=== PATIENT | male | born 1960 | race Caucasian/White ===

== ENCOUNTER → 2021-12-29 09:42 | Outpatient (BNVA) | payer BC, SELFPAY | PROVIDERS: PCP Physician Assistant Medical; Visit Provider Internal Medicine Pulmonary Disease | DX: Z13.89 Encounter for screening for other disorder (principal) ==

== ENCOUNTER → 2022-02-07 10:17 | Outpatient (BNVA) | payer BC, SELFPAY | PROVIDERS: PCP Physician Assistant Medical; Visit Provider Internal Medicine Pulmonary Disease | DX: J90 Pleural effusion, not elsewhere classified (principal) ==

== ENCOUNTER 2022-09-19 10:14 | Outpatient (REF) | payer BC, SELFPAY ==
--- NOTE | ~2022-09-19 | XR_ITS ---
EXAMINATION: XR CERVICAL SPINE CLINICAL INFORMATION: Headache COMPARISON: None TECHNIQUE: 4 views FINDINGS: There are no prevertebral soft tissue or bony abnormalities demonstrated. No compression fractures or subluxations are identified. Alignment is maintained at the atlanto-axial articulation. The disc spaces are preserved. Generalized mild endplate spurring. XR/XR cervical spine 3V IMPRESSION: No acute fracture or subluxation. Mild degenerative disc disease.
== END 2022-09-19 10:15 | disposition home or self-care (01) ==
LOC: HO.XRAY 10:14
PROVIDERS: PCP Physician Assistant Medical; Visit Provider Psychiatry & Neurology Neurology
DX: G44.209 Tension-type headache, unspecified, not intractable (principal)
CPT/HCPCS: 72040

== ENCOUNTER 2023-06-04 10:14 | Outpatient (REF) | payer MEDICARE, SELFPAY ==
[2023-06-04 11:48] LABS: Phenytoin Dilantin 15.8 ug/mL (10.0-20.0)
[2023-06-04 11:50] LABS: T4 Thyroxine 6.4 ug/dL (4.5-12.0)
[2023-06-06 03:19] LABS: T3 Uptake 27 % (22-35)
== END 2023-06-04 10:15 | disposition home or self-care (01) ==
LOC: HO.LAB 10:14
PROVIDERS: PCP Physician Assistant Medical; Visit Provider Psychiatry & Neurology Neurology
DX: R56.9 Unspecified convulsions (principal); E03.9 Hypothyroidism, unspecified
CPT/HCPCS: 36415; 80185; 84436; 84479

== ENCOUNTER 2024-09-30 15:49 | Outpatient (REF) | payer MEDICARE, SELFPAY ==
[2024-09-30 17:39] LABS: Erythrocyte Sedimentation Rate 5 MM/HR (0-15)
== END 2024-09-30 15:50 | disposition home or self-care (01) ==
LOC: HO.LAB 15:49
PROVIDERS: PCP Physician Assistant Medical; Visit Provider Psychiatry & Neurology Neurology
DX: G44.209 Tension-type headache, unspecified, not intractable (principal)
CPT/HCPCS: 36415; 85652

== ENCOUNTER 2024-10-28 14:26 | Outpatient (REF) | payer MEDICARE, SELFPAY ==
--- OUTSIDE RECORDS SUMMARY | 2024-10-28 15:27 | XMS_ITS | Clinical Summary ---
Author Organization [facility] Address [address] [place] [address] Care Team Providers Care Busher Helper Name Role Phone Anthony Marin PA-C Primary Care Provider [phone] Allergies Active Allergy Reactions Criticality Noted Date Comments Adhesives/Tape Unknown/Patient and Family Unable to Define Medium 10/02/2024 Tens Therapy Replace Back Pads Unknown/Patient and Family Unable to Define Medium 10/02/2024 Medications Medication Sig Dispensed Refills Start Date End Date Status phenytoin (DILANTIN) 100 MG ER capsule Take 200 mg by mouth 2 times a day. Active primidone (MYSOLINE) 250 MG tablet Take 1 tablet by mouth nightly. 02/18/2024 Active diltiazem (CARDIZEM LA) 240 MG 24 hr tablet Take 240 mg by mouth daily. 04/09/2024 Active tamsulosin (FLOMAX) 0.4 MG capsule Take 0.4 mg by mouth daily. 09/18/2024 Active clonazePAM (KlonoPIN) 0.5 MG tablet Take 0.5 mg by mouth 2 times a day. Active tadalafil (CIALIS) 5 mg tablet Take 5 mg by mouth. Active Encounters Date Type Department Care Team Description 10/02/2024 1:00 PM EST Office Visit [facility] [address], [address] [place] [address] Lionel Santiago MD Chronic nonintractable headache, unspecified headache type (Primary Dx); Deviated nasal septum; Nasal septal perforation; Chronic rhinitis; Chronic pansinusitis; Bilateral epiphora from Last 3 Months Social History Tobacco Use Types Packs/Day Years Used Date Smoking Tobacco: Never Smokeless Tobacco: Never Tobacco Cessation:Counseling Given: Not Answered Sex and Gender Information Value Date Recorded Sex Assigned at Not on file Gender Identity Not on file Sexual Orientation Not on file Plan of Treatment Health Maintenance Due Date Last Done Comments Hepatitis C Virus Screening 1960 DTaP/Tdap/Td Vaccines (1 - Tdap) 1977 Colonoscopy 2003 Pneumococcal Vaccines 50+ (1 of 1 - PCV) 2008 Zoster (Shingles) Vaccine (1 of 2) 2008 COVID-19 Vaccine ( - season) 2024 07/23/2022, 01/27/2022, 08/07/2021, Additional history exists RSV Vaccine 60 years and older and Patients (1 - 1-dose 75+ series) 2033 Influenza Vaccine Completed 05/29/2024, , 06/23/2020, Additional history exists Hepatitis B Vaccines Aged Out No long er eligible based on patient's age to complete this topic Care Teams Busher Helper Relationship Specialty Start Date End Date Anthony Marin PA-C PCP - General Internal Medicine 07/09/23
--- OUTSIDE RECORDS SUMMARY | 2024-10-28 15:27 | XMS_ITS | Encounter Summary ---
Author Organization [facility] Address [address] [place] [address] Care Team Providers Care Security System Sales Consultant Name Role Phone TomkarissakeshavAnthony PA-C Primary Care Provider [phone] Reason for Referral * Diagnostic Imaging (Routine) - Authorized Specialty Diagnoses / Procedures Referred By Contac t Referred To Contact Diagnoses Chronic pansinusitis Procedures CT Sinuses w/o contrast Lionel Santiago MD [address] [place] [address] MATY GIBBS Referral ID Status Reason Start Date Expiration Date V isits Requested Visits Authorized [id number] Authorized 10/02/2024 10/03/2025 1 1 Reason for Visit * Reason Comments Sinus Problem Encounter Details Date Type Department Care Team (Latest Contact Info) Description 10/02/2024 1:00 PM EST Office Visit [facility] [address], [address] [place] [phone] Lionel Santiago MD [address] [place], [place] [id number] Chronic nonintractable headache, unspecified headache type (Primary Dx); Deviated nasal septum; Nasal septal perforation; Chronic rhinitis; Chronic pansinusitis; Bilateral epiphora Social History Tobacco Use Types Packs/Day Years Used Date Smoking Tobacco: Never Smokeless Tobacco: Never Tobacco Cessation:Counseling Given: Not Answered Sex and Gender Information Value Date Recorded Sex Assigned at Not on file Gender Identity Not on file Sexual Orientation Not on file documented as of this encounter Progress Notes * Lionel Santiago MD - 10/02/2024 1:00 PM EST Images from the original note were not included. [facility] [address] [facility], [address] [address] Loc: [phone] Encounter Date: 10/02/2024 History of Present Illness: Anthony Cleaning is a 64 y.o. male who presents today for chronic sinusitis and chronic difficulty with headaches Patient's had long difficulty with headaches and migraines does work with a neurologist and has been on multiple medications for headaches which seem to be more posteriorly as well as more in the left. Comes and goes although chronicity seems to increasing. Did have an MRI about 4 years prior showed mucosal thickening. Had been treated in [place] at [facility] for prostate cancer and did have a PET scan showed mucosal thickening within the sinuses. Was noted by ENT elsewhere that patient had a perforated septum although no history of any nasal trauma surgeries and denies any difficulty with medication. No facial swelling no cervical adenopathy. No formal films of the sinuses have been obtained. Physical Exam ENT Physical Exam Ear Hearing: intact; Auricles: right auricle normal; left auricle normal; External Mastoids: right external mastoid normal; left external mastoid normal; Ear Canals: right ear canal normal; left ear canal normal; Tympanic Membranes: right tympanic membrane normal; left tympanic membrane normal; Nose External Nose: nares patent bilaterally; external nose normal; Internal Nose: nasal mucosa normal; bilateral inferior turbinates normal; Nose comments: Septal perforation posterior deviation Oral Cavity/Oropharynx Lips: normal; Teeth: normal; Gums: gingiva normal; Tongue: normal; Oral mucosa: normal; Hard palate: normal; Soft palate: normal; Tonsils: normal; Base of Tongue: normal; Posterior pharyngeal wall: no lesion noted; Nasopharynx/Hypopharynx/Larynx Nasopharynx Findings: normal; Hypopharynx: normal; Larynx Findings: normal; Neck Neck: neck normal; neck palpation normal; Thyroid: thyroid normal; Review of Systems HENT: Negative for congestion, dental problem, ear discharge, ear pain, facial swelling, hearing loss, nosebleeds, postnasal drip, rhinorrhea, sinus pressure, sinus pain, sneezing, sore throat, tinnitus, trouble swallowing and voice change. Respiratory: Negative for cough, choking and shortness of breath. Musculoskeletal: Negative for neck pain. Neurological: Positive for headaches. Negative for dizziness, light-headedness and numbness. Hematological: Negative for adenopathy. Psychiatric/Behavioral: Negative for sleep disturbance. Visit Orders. 1. Chronic nonintractable headache, unspecified headache type 2. Deviated nasal septum 3. Nasal septal perforation 4. Chronic rhinitis 5. Chronic pansinusitis 6. Bilateral epiphora Past Medical History History reviewed. No pertinent past medical history. History reviewed. No pertinent surgical history. History reviewed. No pertinent family history. Medication List No current outpatient medications on file. Allergies Not on File Procedure Endoscopic/fiberoptic nasal examination: Nasal endoscopy: With verbal consent a flexible nasal endoscopy was performed. Flexible endoscope was first passed into the right nasal cavity without difficulty. The septum appeared to be midline. The inferior aspect of the nasal cavity was clear and there were no signs of any masses, lesions, or polyps The inferior and middle turbinates were normal in appearance. The scope was then passed into the area of the middle meatus which was clear. The posterior nasal cavity was then evaluated. The superior turbinate was normal in appearance and the superior meatus was open without drainage. The sphenoethmoidal recess was normal. The right side of the nasopharynx was clear. The left nasal cavity was then evaluated. The flexible endoscope was passed into the left nasal cavity without difficulty. The septum appeared midline' The inferior aspect of the nasal cavity was clear and there were no signs of any masses, lesions, or polyps. The inferior and middle turbinates were normal in appearance. The scope was then passed into the area of the middle meatus which was clear. The posterior nasal cavity was then evaluated. The superior turbinate was normal in appearance andthe superior meatus was open without drainage. The sphenoethmoidal recess was normal The left side of the nasopharynx was clear. Assessment & Plan On physical examination there is a benign septal perforation. Because the patient's symptoms mucosal findings seen on PET scan as well as typical headaches formal CT scan of the sinuses will be obtained Lionel Santiago MD documented in this encounter Plan of Treatment Scheduled Orders Name Type Priority Associated Diagnoses Orde r Schedule CT Sinuses w/o contrast Imaging Routine Chronic pansinusitis Expected: 10/02/2024, Expires: 10/02/2025 documented as of this encounter Visit Diagnoses Diagnosis Chronic nonintractable headache, unspecified headache type- Primary Deviated nasal septum Nasal septal perforation Other diseases of nasal cavity and sinuses Chronic rhinitis Chronic pansinusitis Other chronic sinusitis Bilateral epiphora Epiphora, unspecified as to cause documented in this encounter Care Teams Security System Sales Consultant Relationship Specialty Start Date End Date Anthony Marin PA-C PCP - General Internal Medicine 07/09/23 documented as of this encounter
--- OUTSIDE RECORDS SUMMARY | 2024-10-28 15:27 | XMS_ITS | Clinical Summary ---
Author Organization [facility] Address [address] [place] [address] Care Team Providers Care Hair Or Beauty Salon Assistant Name Role Phone Felisakeshav Anthony Tellez PA-C Primary Care Provider Allergies Active Allergy Reactions Criticality Noted Date Comments Latex Rash Medium 04/24/2023 Medications Medication Sig Dispensed Refills Start Date End Date Status phenytoin (DILANTIN) 100 MG ER capsule Take 2 capsules (200 mg total) by mouth 2 (two) times a day. 0 02/07/2023 Active primidone (MYSOLINE) 250 MG tablet Take 1 tablet (250 mg total) by mouth every night at bedtime. 0 02/07/2023 Active dilTIAZem (CARDIZEM CD) 240 MG 24 hr capsule Take 1 capsule (240 mg total) by mouth daily. 0 03/07/2023 Active polyethylene glycol (Golytely) 236 g solution Take as directed 4000 mL 0 07/23/2023 Active Family History Medical History Relation Name Comments Colon cancer Brother Relation Name Status Comments Brother Social History Tobacco Use Types Packs/Day Years Used Date Smoking Tobacco: Never Smokeless Tobacco: Never Tobacco Cessation:Counseling Given: Not Answered Alcohol Use Standard Drinks/Week Comments Never 0 (1 standard drink = 0.6 oz pur e alcohol) Sex and Gender Information Value Date Recorded Sex Assigned at Not on file Gender Identity Not on file Sexual Orientation Not on file Job Start Date Occupation Industry Not on file Not on file Not on file Last Filed Vital Signs Vital Sign Reading Time Taken Comments Blood Pressure 120/86 04/24/2023 2:28 PM EDT Pulse 73 04/24/2023 2:28 PM EDT Temperature - - Respiratory Rate - - Oxygen Saturation - - Inhaled Oxygen Concentration - - Weight 108 kg (238 lb) 04/24/2023 2:28 PM EDT Height 175.3 cm (5' 9 ) 04/24/2023 2:28 PM EDT Body Mass Index 35.15 04/24/2023 2:28 PM EDT Plan of Treatment Health Maintenance Due Date Last Done Comments Hepatitis C Screening 1960 COVID-19 Vaccine (#1) 1958 Depression Screening 1970 BMI Counseling 1976 Preventative Health Evaluation 1976 Colon Cancer Screening (Colonoscopy) 2003 Shingrix-Zoster Vaccine (1 of 2) 2008 Fall Risk Assessment 2023 Pneumococcal Vaccine (1 of 1 - PCV) 2023 Influenza Vaccine (#1) 2024 3, 07/23/2022, 07/23/2022, Additional history exists DTap / Tdap / Td (3 - Td or Tdap) 11/04/2029 11/04/2019, 07/20/2010, 06/05/2000 RSV Adult > 60+ Yrs or (1 - 1-dose 75+ series) 2033 Hepatitis B Vaccines Aged Out No long er eligible based on patient's age to complete this topic RSV Ped < 20 months Aged Out No longe r eligible based on patient's age to complete this topic Care Teams Hair Or Beauty Salon Assistant Relationship Specialty Start Date End Date Anthony Marin PA-C PCP - General Medical Services 04/24/23
--- OUTSIDE RECORDS SUMMARY | 2024-10-28 15:27 | XMS_ITS | Patient Health Record ---
Author Organization [facility] Address [address] [place] [address] Care Team Providers Care Study Manager Name Role Phone EDER CURRY PA-C Primary Care Provider Un available Carlitos Smith Unavailable [phone] REASON FOR REFERRAL No Information SOCIAL HISTORY Sex Assigned At : Social History Observation Description Sex Assigned At Unknown PLAN OF TREATMENT No Information Insurance Providers Payer Name Payer Address Payer Phone Subscriber Number Group Number Insured Name Patient Relationship to Insured Coverage Start Date Coverage End Date [facility] [address] [place], [place] [id number] EDER KEITA Self - patient is the insured
--- OUTSIDE RECORDS SUMMARY | 2024-10-28 15:27 | XMS_ITS | Clinical Summary ---
Author Organization [facility] Address [address] [place] [address] Care Team Providers Care Supervisor Belt And Link Assembly Name Role Phone Anthony Marin Primary Care Provider [phone] Allergies Active Allergy Reactions Criticality Noted Date Comments Adhesive Tape-Silicones Rash 05/17/2023 Medications dilTIAZem CD (CARDIZEM CD) 240 mg 24 hr capsule Take 240 mg by mouth once a day. 03/07/2023 Active codeine-guaiFENe sin (CHERATUSSIN AC) 20-200 mg/10 mL liquid TAKE 5 ML BY MOUTH 3 TIMES DAILY NEEDED FOR COUGH FOR UP TO 10 DAYS. 12/01/2022 Active Social History Tobacco Use Types Packs/Day Years Used Date Smoking Tobacco: Never Assessed Sex and Gender Information Value Date Recorded Sex Assigned at Male 05/16/2023 2:00 PM EDT Legal Sex Male 1:19 PM EDT Gender Identity Male 05/16/2023 2:00 PM EDT Sexual Orientation Straight 05/16/2023 2: 00 PM EDT Last Filed Vital Signs Vital Sign Reading Time Taken Comments Blood Pressure 139/81 05/17/2023 9:36 AM EDT Pulse 74 05/17/2023 9:36 AM EDT Temperature - - Respiratory Rate - - Oxygen Saturation - - Inhaled Oxygen Concentration - - Weight - - Height - - Body Mass Index - - Plan of Treatment Health Maintenance Due Date Last Done Comments Cologuard 1960 Colon Cancer Screening 1960 Colonoscopy 1960 FOBT / Fit Test 1960 Hepatitis C Screening 1960 Sigmoidoscopy 1960 Pneumococcal Vaccine: 50+ Years (1 of 1 - PCV) 2008 Zoster Vaccines (1 of 2) 2008 RSV Vaccine (60+ years old and patients) (1 - Risk 60-74 years 1-dose series) 2018 COVID-19 Vaccine ( season) 2024 07/23/2022, 01/27/2022, 08/07/2021, Additional history exists Influenza Vaccine (#1) 2024 , 06/21/2021, 06/23/2020, Additional history exists Alcohol/Substance Use Screening 09/10/2024 Depression Screening and Follow-Up 09/10/2024 Health Care Proxy Review 09/10/2024 Social Drivers of Health Annual Screening 09/10/2024 DTaP,Tdap,and Td Vaccines (3 - Td or Tdap) 11/04/2029 11/04/2019, 07/20/2010, 06/05/2000 Hepatitis B Vaccines Aged Out No long er eligible based on patient's age to complete this topic Insurance [facility] Care Teams Supervisor Belt And Link Assembly Relationship Specialty Start Date End Date Anthony Marin PCP - General Internal Medicine 02/16/23
--- OUTSIDE RECORDS SUMMARY | 2024-10-28 15:27 | XMS_ITS | Clinical Summary ---
Author Organization [facility] ity Address [address] [place] [address] Care Team Providers Care Photogrammetry Airplane Pilot Name Role Phone Anthony Marin Primary Care Provider [phone] Allergies Active Allergy Reactions Criticality Noted Date Comments Adhesive Tape-Silicones Itching High 05/17/2023 Other reaction(s): Rash EKG leads Latex 12/01/2021 Sertraline Palpitations 10/19/2022 Medications albuterol HFA (ProAir HFA) 90 mcg/actuation inhaler Inhale 2 puffs by mouth every 4 (four) hours if needed for wheezing or shortness of breath. 8.5 g 5 4 07/28/20 25 Active clonazePAM (KlonoPIN) 0.5 mg tablet Take 2 Tablets by mouth at bedtime as needed. 3 Active dilTIAZem CD (CARDIZEM CD) 240 mg 24 hr capsule TAKE 1 CAPSULE BY MOUTH TWICE A DAY 4 Active dilTIAZem LA (CARDIZEM LA) 240 mg 24 hr tablet Take 240 mg by mouth daily. 4 Active phenytoin (DILANTIN) 100 mg ER capsule TAKE 2 CAPSULES BY MOUTH TWICE A DAY 4 Active primidone (MYSOLINE) 250 mg tablet TAKE 1 TABLET BY MOUTH EVERYDAY AT BEDTIME 4 Active sildenafiL (VIAGRA) 100 mg tablet Take 0.5 Tablets by mouth as needed for Erectile Dysfunction. 3 Active Active Problems Problem Noted Date Diagnosed Date Prostate cancer 01/04/2024 Atrial tachycardia 10/19/2022 Palpitation 10/19/2022 Anxiety and depression 08/21/2022 Dilatation of thoracic aorta 12/23/2021 Primary insomnia 06/04/2018 Hyperlipidemia 02/02/2016 Atrial fibrillation 11/19/2005 Overview (08/27/2024): followeed by dr ligia Hubbard Assessment & Plan: Patient presents today for EKG visit and due to patient's ongoing symptoms and concerns I saw him for an office visit as well. His EKG is showing atrial flutter with variable AV block with a heart rate of 112 bpm. Patient states that his heart rate was even more elevated through the weekend. He is reporting some tremors from the flecainide which he states has been present since the initiation of the medication. Ultimately he would like to come off these medications and understands that this is just a temporary measure until he sees Dr. Jorge and possibly discuss a procedure in the future. Given that his heart rate is still elevated I would recommend that he is increase his diltiazem to 240 mg once a day and continue with flecainide 150 mg twice daily. We will also reach out to our EP service to let them know what happened today and to provide further direction if necessary. 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 Overview (08/27/2024): Last seizure in late Severe obesity (BMI 35.0-39.9) with comorbidity 11/19/2005 Immunizations Name Administration Dates Next Due H1N1 Inj Preservative Free 06/18/2016 Influenza Quadravalent, MDCK , 0.5ml, preservative free (Flucelvax) 6mo and older 06/23/2020,06/04/2018 Influenza Quadravalent, MDCK , 0.5ml, with preservative (Flucelvax) 6mo and older 07/23/2023,07/23/2022 Influenza trivalent, 0.5mL ( Fluad) 65yo and older 05/29/2024 Influenza trivalent, 0.5mL, preservative free (Fluarix; FluLaval; Fluzone) ages 6mo and older (Afluria) 3 years and older 06/10/2019,06/17/2017,06/18/2016,2014,06/12/2014,06/11/2013 Influenza trivalent, with preservative (Fluzone; Afluria) 6mo and older 06/21/2021 Influenza, Unspecified 07/10/2019,06/17/2017,01/2015 Moderna SARS-CoV-2 COVID-19, mRNA, LNP-S, preservative free 01/27/2022,08/07/2021,12/21/2020,2020 Pfizer (ages 12 & older) Biv alent, COVID-19 07/23/2022 TD, Adsorbed, Preservative Free 06/05/2000 Td Tetanus diptheria (Tdvax) 7yo and older 11/04/2019 Tdap Tetanus diptheria acell ular pertussis (Boostrix; Adacel) 7yo and older 07/20/2010 Surgical History Surgery Date Site/Laterality Comments TONSILLECTOMY PROCEDURE: HISTORICAL TONSILLECTOMY OTHER SURGICAL HISTORY PROCEDURE: HISTORY OTHER; COMMENT: MINOR SURG ON THE LEFT WRIST ESOPHAGOGASTRODUODENOSCOPY 2005 PROCEDURE: NH EGD TRANSORAL BIOPSY SINGLE/MULTIPLE; COMMENT: duodenal bx normal COLONOSCOPY W/ BIOPSIES 2005 PROCEDURE: NH COLONOSCOPY W/BIOPSY SINGLE/MULTIPLE; COMMENT: colonic bx normal COLONOSCOPY 2012 PROCEDURE: NH COLONOSCOPY FLX DX W/COLLJ SPEC WHEN PFRMD; COMMENT: normal OTHER SURGICAL HISTORY 11/2021 PROCEDURE: TREAT ATRIAL FIBRILLATION/FLUTTER; COMMENT: maze procedure, left atrial appendage closure Medical History Medical History Date Comments Generalized convulsive epile psy without mention of intractable epilepsy 11/19/2005 DX:Generalized convuls bora epilepsy without mention of intractable epilepsy Atrial fibrillation (CMS/HCC) 11/19/2005 DX :Atrial fibrillation (HCC) Obesity, unspecified 11/19/2005 DX:Obesity, unspecified Hyperlipidemia 02/02/2016 DX:Hyperlipidemi a Family History Medical History Relation Name Comments Colon cancer Brother 1 Relation Name Status Comments Brother 1 Alive Brother 2 Alive colon cancer at age 47 stage 4 lung cancer Brother 3 Alive Brother 4 Alive Brother 5 Alive Brother 6 Alive Father (Age 82) PROSTATE C ANCER Mother Alive Social History Tobacco Use Types Packs/Day Years Used Date Smoking Tobacco: Never Smokeless Tobacco: Never Alcohol Use Standard Drinks/Week Comments No 0 (1 standard drink = 0.6 oz pur e alcohol) Sex and Gender Information Value Date Recorded Sex Assigned at Not on file Legal Sex Male 11:11 AM EST Gender Identity Not on file Sexual Orientation Not on file Obstetrics History Last Filed Vital Signs Vital Sign Reading Time Taken Comments Blood Pressure 120/68 05/29/2024 10:42 AM EDT Pulse 60 05/29/2024 10:42 AM EDT Temperature - - Respiratory Rate - - Oxygen Saturation - - Inhaled Oxygen Concentration - - Weight 105 kg (232 lb) 05/29/2024 10:42 AM EDT Height 175.3 cm (5' 9 ) 05/29/2024 10:42 AM EDT Body Mass Index 34.26 05/29/2024 10:42 AM EDT Plan of Treatment Upcoming Encounters Date Type Department Care Team (Late st Contact Info) Description 04/09/2025 1:30 PM EDT Ancillary Procedure [facility] - [address] [place] [address] Health Maintenance Due Date Last Done Comments Pneumococcal Vaccine: 50+ Years (1 of 2 - PCV) 1977 Zoster Vaccines (1 of 2) 1977 RSV Immunization Patients 60+ Years Old (1 - Risk 60-74 years 1-dose series) 2018 Social Influencers of Health Screening 08/19/2022 Falls Risk Assessment 2023 COVID-19 Vaccine ( season) 2024 07/23/2022, 01/27/2022, 08/07/2021, Additional history exists Depression Screening 01/03/2025 01/04/2024 Medicare Annual Wellness Visit 01/03/2025 01/04/2024 Cholesterol Screening (Lipid Panel) 05/14/2029 05/14/2024 DTaP,Tdap,and Td Vaccines (3 - Td or Tdap) 11/04/2029 11/04/2019, 07/20/2010, 06/05/2000 Colorectal Cancer Screening: Colonoscopy 06/28/2033 06/28/2023 Hepatitis C Screening Completed 11/04/2018 Influenza Vaccine Completed 05/29/2024, , 07/23/2022, Additional history exists HIB Vaccines Aged Out No longer eligi ble based on patient's age to complete this topic HPV Vaccines Aged Out No longer eligi ble based on patient's age to complete this topic Hepatitis A Vaccines Aged Out No long er eligible based on patient's age to complete this topic Hepatitis B Vaccines Aged Out No long er eligible based on patient's age to complete this topic IPV Vaccines Aged Out No longer eligi ble based on patient's age to complete this topic MMR Vaccines Aged Out No longer eligi ble based on patient's age to complete this topic Meningococcal ACWY Vaccine Aged Out N o longer eligible based on patient's age to complete this topic Meningococcal B Vacine Aged Out No lo nger eligible based on patient's age to complete this topic RSV Immunization Patients Under 20 months Aged Out No longer eligible based on patient's age to complete this topic Varicella Vaccines Aged Out No longer eligible based on patient's age to complete this topic Procedures Procedure Name Priority Date/Time Associated Diagnosis Comments EXTERNAL CLINICAL LAB 08/11/2024 LIPID PANEL Routine 05/14/2024 DEPRESSION SCREENING Routine 01/04/2024 COLONOSCOPY Routine 06/28/2023 HEPATITIS C SCREENING Routine 11/04/2018 from Last 3 Months or Most Recently Relevant to Health Maintenance Results * External clinical lab (08/11/2024) [facility] LAB BLOOD ORDERABLES Fin al Result * Lipid panel (05/14/2024) LDL/HDL Ratio 0 Comment:No Interpretation, A bstracted Triglycerides 0 mg/dL Comment:No Interpretation, A bstracted Cholesterol 0 mg/dL Comment:No Interpretation, A bstracted HDL 0 mg/dL Comment:No Interpretation, A bstracted LDL Cholesterol 0 mg/dL Comment:No Interpretation, A bstracted Blood Venous blood specimen / Unknown [facility] Provider LAB BLOOD ORDERABLES Vivian l Result * Depression Screening (01/04/2024) Depression Screening Abstracted Historical Provider HEALTH MAINTENANCE Final Result * Colonoscopy (06/28/2023) Colonoscopy No Interpretation , Abstracted Anatomical Region Laterality Modality Other Historical Provider HEALTH MAINTENANCE Final Result * Hepatitis C Screening (11/04/2018) Hepatitis C Screening Abstracted Historical Provider HEALTH MAINTENANCE Final Result from Last 3 Months or Most Recently Relevant to Health Maintenance Insurance MEDICARE [facility] Care Teams Photogrammetry Airplane Pilot Relationship Specialty Start Date End Date Anthony Marin PA PCP - General Internal Medicine 09/07/21
--- OUTSIDE RECORDS SUMMARY | 2024-10-28 15:27 | XMS_ITS ---
Author Name [facility] Organization Unknown History of Medication Use Medication Directions Dispensed Refills Start Date End Date Stat us primidone (MYSOLINE) 250 MG tablet Take 1 tablet by mouth nightly. 02/18/2024 active phenytoin (DILANTIN) 100 MG ER capsule Take 200 mg by mouth 2 times a day. active tadalafil (CIALIS) 5 mg tablet Take 5 mg by mouth. activ e clonazePAM (KlonoPIN) 0.5 MG tablet Take 0.5 mg by mouth 2 times a day. active diltiazem (CARDIZEM LA) 240 MG 24 hr tablet Take 240 mg by mouth daily. 04/09/2024 active tamsulosin (FLOMAX) 0.4 MG capsule Take 0.4 mg by mouth daily. 09/18/2024 active Problems Problem Status Onset Date Problem Type Date of Resolution Source Chronic pansinusitis active EncounterDiagnosisA ct [facility] Bilateral epiphora active EncounterDiagnosisAct [facility] Deviated nasal septum active EncounterDiagnosis Act [facility] Nasal septal perforation active EncounterDiagnosisAct [facility] Chronic nonintractable headache, unspecified headache type active EncounterDiagnosisAct [facility] Chronic rhinitis active EncounterDiagnosisAct [facility]
--- OUTSIDE RECORDS SUMMARY | 2024-10-28 15:27 | XMS_ITS | Referral Summary ---
Author Organization [facility] Address [address] [place] [address] Care Team Providers Care Ecmo Specialist Name Role Phone Anthony Marin Primary Care Provider [phone] Allergies Active Allergy Reactions Criticality Noted Date [...] Mass Index - - Plan of Treatment Not on file Insurance MEDICARE [facility] SUPP Care Teams Ecmo Specialist Relationship Specialty Start Date End Date Anthony Marin PCP - General Internal Medicine 02/16/23
--- OUTSIDE RECORDS SUMMARY | 2024-10-28 15:27 | XMS_ITS ---
Author Organization [facility] Address [address] [place] [phone] Care Team Providers Care Manager Assurance Name Role Phone EDER CURRY PA-C Primary Care Provider Un available Carlitos Smith Unavailable [phone] REASON FOR VISIT Patient presents today for a SCREENING COLON Encounters Encounter Location Date Provider Diagnosis [facility] [address] [place] [phone] 07/04/2023 Carlitos Smith PLAN OF TREATMENT No Information
--- OUTSIDE RECORDS SUMMARY | 2024-10-28 15:27 | XMS_ITS ---
Author Organization [facility] Address [address] [place] [phone] Care Team Providers Care Carpenter Foreman Name Role Phone EDER CURRY PA-C Primary Care Provider Un available Carlitos Smith Unavailable [phone] REASON FOR VISIT new pt appt Encounters Encounter Location Date Provider Diagnosis [facility] [address] [place] [phone] 07/02/2023 Carlitos Smith PLAN OF TREATMENT No Information
[2024-10-28 16:02] LABS: Alanine Aminotransferase 29 U/L (0-40); Albumin Level 4.1 g/dL (3.5-5.0); Alkaline Phosphatase 63 U/L (39-117); Anion Gap 10 (12-20); Aspartate Amino Transferase 29 U/L (5-37); Bilirubin Total 0.4 mg/dL (0.0-1.0); Blood Urea Nitrogen 15 mg/dL (9-16); Carbon Dioxide 27 mmol/L (22-29); Chloride 109 mmol/L (96-108); Estimated Glomerular Filt Rate > 60; Glucose Random 86 mg/dL (60-115); Potassium 4.4 mmol/L (3.3-5.1); Sodium 142 mmol/L (135-145); Total Protein 7.3 g/dL (6.5-8.0)
== END 2024-10-28 14:27 | disposition home or self-care (01) ==
LOC: HO.LAB 14:26
PROVIDERS: PCP Physician Assistant Medical; Visit Provider Registered Nurse
DX: G25.3 Myoclonus (principal)
CPT/HCPCS: 36415; 80053; 80185

== ENCOUNTER 2025-07-13 11:32 | Outpatient (REF) | payer MEDICARE, SELFPAY ==
--- OUTSIDE RECORDS SUMMARY | 2024-02-20 09:15 | XMS_ITS ---
Author Organization [employer] [facility] Address [address] [facility] [address] [place] [address] Care Team Providers Care Business Support Liaison Name Role Phone Hilton Tovar Unavailable [phone] Luis Beach Unavailable Unavailable Vital Signs Blood pressure systolic 120 mm Hg 02/20/20 24 Blood pressure diastolic 78 mm Hg 024 Heart Rate 68 /min 02/20/2024 Height 69 in 02/20/2024 Weight 228 lbs 02/20/2024 BMI 33.67 kg/m2 02/20/2024 BMI Percentile 33.67 % 02/20/2024 Height-cm 175.26 cm 02/20/2024 Weight-kg 103.42 kg 02/20/2024 Encounters Encounter Location Date Provider Diagnosis [facility] [address] [facility] [address] [place] [address] 02/20/2024 Hilton Tovar Plan Of Treatment No [...] and discussion. 63 year old male from [place], [place] with hx of Seizures, Afib and flutter s/p WMM 11/2021 and afib/flutter ablation in [place] (03/2023) and s/p redo PVI ablation 06/15/2023. [...] * Anthony CLEANINGDOB: 1960 (65 yo M)Acc No.[id number]:02/20/2024 Patient: Jay chapiskaileemacario Anthony Casanova Provider: Austin Tovar MD :1960 A ge:63 Y S ex:Male Date:02/20/2024 Address:[address] [place], [place] [id number] Subjective: * Chief Complaints: * HPI: M [...] and discussion. 63 year old male from [place], [place] with hx of Seizures, Afib and flutter s/p WMM 11/2021 and afib/flutter ablation in [place] (03/2023) and s/p redo PVI ablation 06/15/2023. [...] * Electronic signature of Hilton Tovar on 07/13/2025 at 01:42 PM ADVERTISING SPACE CLERK Sign off status: Pending * Provider: Austin Tovar MD Date: 0 02/20/2024 Generated for Adalid mackey/Chicho/Tomasz on: 09/12/2024 01:42 PM ADVERTISING SPACE CLERK
--- OUTSIDE RECORDS SUMMARY | 2025-01-31 04:00 | XMS_ITS ---
Author Organization [facility] Address [address] [facility] [address] [place] [address] Care Team Providers Care Channel Lip Stiffener Insoles Name Role Phone Hilton Tovar Unavailable [phone] Luis Beach Unavailable Unavailable Migration, Provider Unavailable [...] as needed for pain 07/03/2023 *Reorder from [facility] an for eRx and Interaction Alerts* clonazePAM 0.5 MG Tablet Take 1 tablet by mouth once a day Oral Progress Notes * Anthony CLEANINGB: 1960 (65 yo M)Acc No.[id number]:01/31/2025 Patient: Anthony SEQUEIRA :1960 A ge:64 Y S ex:Male Address:[address] [place] [address], [facility] * Refills Stop Amiodarone HCl Tablet, 200 [...]
--- OUTSIDE RECORDS SUMMARY | 2025-02-01 04:00 | XMS_ITS ---
Author Organization [facility] Address [address] [facility] [address] [place] [address] Care Team Providers Care Jet Worker Name Role Phone Hilton Tovar Unavailable [phone] Luis Beach Unavailable Unavailable Migration, Provider Unavailable Unavailable Allergies No Known Allergies REASON FOR VISIT [facility] Medications Medication SIG (Take, Route, Frequency, Duration) Notes Start Date End Date Status Primidone 250 MG Tablet 1tab QHS Oral Active clonazePAM 0.5 MG Tablet Take 2 tablet b y mouth once a day Oral Active Dilantin 100 MG Capsule Take 2 tabs PO BID Oral Active Cardizem LA 240 MG Tablet Extended Release 24 Hour Take 1 tablet by mouth once a day Oral Active Social History Social History Additional Details Category Social Info Options Details Migrated Social History Migrated Social History seatbelt usage : 100 , drug use : no , smoking status : Never smoker , passive cigarette smoke exposure : no , caffeine use, average drinks per day : 0 , chewing tobacco use : Never , if the patient is using/has used a vaping item, Current, Former, Never Used, Not asked : Never , Exercise counseling : Yes , personal history of marijuana use : no , alcohol use : no , social history : Intio Encounters Encounter Location Date Provider Diagnosis Migrated_Facility 0 0 02/01/2025 Provider Migration Plan Of Treatment No Information Progress Notes * Anthony CLEANINGDOB: 1960 (65 yo M)Acc No.[id number]:02/01/2025 Patient: Anthony SEQUEIRA :1960 A ge:64 Y S ex:Male Address:[address] [place] [address], [address] Subjective: * Chief Complaints: * E MR-[facility] * Medical History: Current Problems: Prostate cancer (ICD-185) (VAJ48-G07) Body mass index (BMI) 33.0-33.9, adult (ICD-V85.33) (QHB66-R21.33) Long-term (current) use of anticoagulants (ICD-V58.61) (QRB10-D53.01) Fall risk (ICD-V15.88) (EMH48-P22.81) S/P PVI ABLATION, 06/15/2023 (ICD-V58.89) (NDA09-Y63.89) PVI, CTI ablation (03/19/23) (ICD-V15.1) (FPT36-M30.890) Cardioversion by Dr. De Guzman (ICD-V15.1) (AFO57-S18.11xA) Body mass index (BMI) 35.0-35.9, adult (ICD-V85.35) (NJW49-T54.35) Overweight (ICD-278.02) (LFZ66-T88.3) Typical atrial flutter (ICD-427.32) (KWF47-U79.3) Atrial fibrillation (ICD-427.31) (ELN46-Z37.91) KIRK MAZE ( Dr. Beach) 11/11/2021 (ICD-V45.89) (IRW14-J41.890) High risk meds superintendent terminal use (ICD-V58.6) (CMK74-A16.899) PAC (ICD-427.61) (BYX27-W54.1) Seizure disorder HX (ICD-780.39) (PSI96-F94.9) Pvc's (ICD-427.69) (BIX29-X30.3) Palpitations (ICD-785.1) (RLU31-E25.2) Abnormal electrocardiogram (ICD-794.31) (YVH58-C23.31) * Surgical History: s/p Mini Maze 11/2022 PAST SurgHX Till 02/20/2024 S/p PVI ablation 06/15/2023 PAST SurgHX Till 02/20/2024 * Family History: M igrated Family History: : myocardial infarction in female under 65, family hx : no ,: myocardial infarction in male under 55, family hx (NCEP risk factors) : no . M other: No known relatives. * Social History: M igrated Social History: M igrated Social History: seatbelt usage : 100 , drug use : no , smoking status : Never smoker , passive cigarette smoke exposure : no , caffeine use, average drinks per day : 0 , chewing tobacco use : Never , if the patient is using/has used a vaping item, Current, Former, Never Used, Not asked : Never , Exercise counseling : Yes , personal history of marijuana use : no , alcohol use : no , social history : Intio. * Medications: T akingPrimidone 250 MG Tablet 1tab QHS Oral clonazePAM 0.5 MG Tablet Take 2 tablet by mouth once a day Oral Dilantin 100 MG Capsule Take 2 tabs PO BID Oral Cardizem LA 240 MG Tablet Extended Release 24 Hour Take 1 tablet by mouth once a day Oral Taking Primidone 250 MG Tablet 1tab QHS Oral Taking clonazePAM 0.5 MG Tablet Take 2 tablet by mouth once a day Oral Taking Dilantin 100 MG Capsule Take 2 tabs PO BID Oral Taking Cardizem LA 240 MG Tablet Extended Release 24 Hour Take 1 tablet by mouth once a day Oral * Allergies: N .K.D.A. * * Date:
--- OUTSIDE RECORDS SUMMARY | 2025-05-07 05:30 | XMS_ITS ---
Author Organization [facility] [place] Address [address] [place] [address] Care Team Providers Care Portable Power Tool Repairer Name Role Phone Anthony Machado Primary Care Provider Unav ailable Black, Roxy Unavailable [phone] Allergies Allergen (clinical drug ingredient) Drug/Non Drug Allergy documented on EMR Reaction Allergy Type Onset Date Status Adhesive Taps (uncoded) Unknown Allergy Active Medications Medication SIG (Take, Route, Fr equency, Duration) Notes Start Date End Date Status dilTIAZem HCl Active Tamsulosin HCl Activ e Primidone Active Tadalafil Active clonazePAM Active Phenytoin Active Social History Tobacco Use: Social History Observation Description Date Details (start date - stop date) Never Smoker NA - NA Tobacco use other than smoking: Question Answer Notes Are you an other tobacco user? No Tobacco Control (Standard) Question Answer Notes Tobacco use: Nonsmoker AUDIT-C (Standard) Question Answer Notes Did you have a drink contain ing alcohol in the past year? Yes How often did you have a dri nk containing alcohol in the past year? Never (0 point) How many drinks did you have on a typical day when you were drinking in the past year? 1 or 2 drinks (0 point) How often did you have six o r more drinks on one occasion in the past year? Never (0 point) Points 0 Interpretation Negative Vital Signs Height 5 ft 9 in in 05/07/2025 Weight 240 lbs 05/07/2025 BMI 35.44 kg/m2 05/07/2025 Encounters Encounter Location Date Provider Diagnosis [facility] [address] [place] [address] 05/07/2025 Roxy Clifford Plan Of Treatment No Information Progress Notes * Anthony CLEANING JDOB:[birth year] (65 yo M)Acc No.[id number]:05/07/2025 Progress Notes Patient: Anthony SEQUEIRA Provider: Satinder Horton DPM :1960 A ge:65 Y S ex:Male Date:05/07/2025 Address:[address] [place] [address] kenyon [id number] Pcp:ELDA Esquivel Subjective: * Chief Complaints: * * ROS: G eneral/Constitutional: Nausea d enies. V omiting d enies. H hamilton Thirst d enies. L oss appetite d enies. C hills d enies. F atigue a dmits.?Fever d enies. N ight Sweats d enies. U nexplained weight loss d enies. U nexplained weight gain d enies. H EENTM: Dentures d enies. D izziness d enies. G lasses/contacts a dmits. R etinopathy d enies. B lurred/double vision d enies. T MJ?denies. D ischarge/drainage d enies. I mplants d enies. S ore throat d enies. D ental implants d enies. H belkys of hearing d enies. D ifficulty chewing/swallowing/speaking d enies. N ose bleeds d enies. S ore mouth d enies. ? R espiratory: On Oxygen d enies. P neumonia/pleurisy d enies.?Bronchitis d enies. E mphysema d enies. C oughing d enies. C ough blood?denies. S hortness of breath d enies. W heezing d enies. C ardiovascular: Pacemaker d enies. M TYING IN MACHINE OPERATOR d enies. W PW d enies. C HF d enies. H eart attack d enies. S eptal defect d enies. R apid beat d enies. C hest pain d enies. A trial Fib. a dmits. M urmur/Palpitations a dmits. G astrointestinal: Hemorrhoids a dmits. S tomach/Abdominal pain d enies. D ark blood stool d enies. I rritable bowel d enies. C onstipation d enies. D iarrhea d enies. H ematology: Swelling d enies. C lots d enies. V aricose Veins d enies. B ruising d enies. B leeding problem d enies. G enitourinary: Blood urine d enies. F requent/Painfu/urination/bladder control d enies. K idney stones d enies. I nfection (UTI) d enies. N ephropathy d enies. s ex trans dis (STD) d enies. P rostate a dmits. M usculoskeletal: Hammertoes d enies. B unions d enies. B ack Pain a dmits. M uscle Cramps/ Resting a dmits. M uscle cramps / walking d enies.?Generalized aches and pains a dmits. W eakness d enies. I nteg.: Lamas d enies. S cars d enies. C orns/calluses?denies. I ngrown nails d enies. P ainful nails d enies. O pen Sores d enies. R ashes d enies. N eurologic: Difficulty sleeping d enies. B rain disorder d enies. N umbness a dmits. B alance trouble d enies. C onfusion d enies. F ainting/blackouts d enies. T ingling d enies. T remors a dmits. * Medical History: A rthritis (OA, RA), Back, Hip, Knee Pain, Broken Bone(s), Carcer, Epilepsy/Seizures, Headaches/Migraines, Measles, Mumps, A fib, Chicken Pox. * Surgical History: b one graft 1976, cardiac ablation 11/2021, catheter ablation 03/2023, 06/2023. * Family History: M other: , diagnosed with Family history of arthritis. F ather: , diagnosed with Other malignant neoplasm of unspecified site. * Social History: T obacco Use: T obacco use other than smoking A re you an other tobacco user? N o Tobacco Control (Standard) T obacco use: N onsmoker D rugs/Alcohol: D rugs H ave you used drugs other than those for medical reasons in the past 12 months? N o M iscellaneous: C affeine: yes, frequency:. Children: yes, 1. Exercise: yes, treadmill, elliptical weights, walking, hiking. Marital status: . Occupation: [employer]. D rug/Alcohol: A MARIANA-C (Standard) D id you have a drink containing alcohol in the past year? Y es H ow often did you have a drink containing alcohol in the past year? N ever (0 point) H ow many drinks did you have on a typical day when you were drinking in the past year? 1 or 2 drinks (0 point) H ow often did you have six or more drinks on one occasion in the past year? N ever (0 point) P oints 0 I nterpretation N egative * Medications: T aking Phenytoin , Taking Primidone , Taking clonazePAM , Taking Tadalafil , Taking Tamsulosin HCl , Taking dilTIAZem HCl * Allergies: A dhesive Taps. Objective: * Vitals: H t: 5 ft 9 in, Wt:240, BMI:35.44, Shoe size: 10, Ht-cm: 175.26 cm, Wt-k.86 kg. Assessment: Plan: * Treatment: * Images: * The named appointment provid er may or may not be the originator of this progress note, and it is not deemed complete until electronically signed by the appointment provider. Sign off status: Pending * Provider: Satinder Horton DPM Date: 0 05/07/2025 Generated for Adalid mackey/Chicho/Tomasz on: 09/12/2024 02:44 PM EST
[2025-07-13 13:03] LABS: Anion Gap 10 (12-20); Blood Urea Nitrogen 18 mg/dL (9-16); Calcium 8.6 mg/dL (8.4-10.2); Carbon Dioxide 28 mmol/L (22-29); Chloride 108 mmol/L (96-108); Estimated Glomerular Filt Rate > 60; Magnesium 2.0 mg/dL (1.6-2.6); Potassium 4.6 mmol/L (3.3-5.1); Sodium 141 mmol/L (135-145)
--- OUTSIDE RECORDS SUMMARY | 2025-07-13 14:42 | XMS_ITS | Encounter Summary ---
Author Organization [facility] Address [address] [address] [place] [address] Phone Care Team Providers Care Try Out Person Name Role Phone Felisakeshav Alton SCHROEDER Primary Care Provid er Alexsander Mckeon MD, MPH Unavailable [phone] Vickie Anne DO Unavailable [phone] Asa Morales MD Unavailable [phone] Alona Barlow RN Unavailable [email or web address] Mick Baer INSPECTOR CONVEYOR LINE Unavailable [phone] Encounter Details Date Type Department Care Team (Late st Contact Info) Description 09/06/2023 Procedure Pass [facility] [address] [place] [address] Social History Tobacco Use Types Packs/Day Years Used Date Smoking Tobacco: Never Smokeless Tobacco: Never Alcohol Use Standard Drinks/Week Comments Yes 0 (1 standard drink = 0.6 oz pur e alcohol) socially - a few beers/year Education Answer Date Recorded Are you interested in more education? Not on mary jane e 07/09/2023 Are you concerned about learning? Not on file 07/09/2023 No 07/09/2023 No 07/09/2023 Digital Access Answer Date Recorded No 07/09/2023 No 07/09/2023 Reliable internet access at home? Not on file 07/09/2023 Device with a working camera? Not on file Sex and Gender Information Value Date Recorded Sex Assigned at Male 07/09/2023 3:00 PM EDT Legal Sex Male 2:59 PM EDT Gender Identity Male 07/09/2023 3:00 PM EDT Sexual Orientation Straight 07/09/2023 3: 00 PM EDT documented as of this encounter Plan of Treatment Upcoming Encounters Date Type Department Care Team (Late st Contact Info) Description 09/23/2025 9:00 AM EST Appointment Department of Radiation Oncology [address] [place] [address] Tessa Castano PA-C [address] [place] [address] [email or web address] documented as of this encounter Visit Diagnoses Not on filedocumented in this encounter Care Teams Try Out Person Relationship Specialty Start Date End Date Alton Marin PA [address] [place] [address] PCP - General Physician Motel Food Service Supervisor 07/09/23 lAexsander Mckeon MD, MPH [address] [place] [address] [address] [place] [address] [email or web address] 12/11/23 Vickie Anne DO [address] [place] [address] [place] [address] [email or web address] Medical Oncology 12/11/23 Asa Morales MD [address] [place] [address] [email or web address] Radiation Oncology 12/11/23 Alona Barlow, RN [address] [place] [phone] [email or web address] Registered Nurse Oncology 05/20/24 Mick Baer, [address] [address] [email or web address] Oven Attendant 08/21/24 documented as of this encounter Additional Source Comments The information contained in this document represents components of the legal health record. It is not the complete legal health record.[facility]
--- OUTSIDE RECORDS SUMMARY | 2025-07-13 14:42 | XMS_ITS | Encounter Summary ---
Author Organization [facility] Address [address] [place] [address] [place] [address] Phone Care Team Providers Care Senior Water/Wastewater Engineer Name Role Phone FelisakeshavAlton Primary Care Provid er Alexsander Mckeon MD, MPH Unavailable [phone] Vickie Anne DO Unavailable [phone] Asa Morales MD Unavailable [phone] Alona Barlow RN Unavailable [email or web address] Mick Baer [facility] Unavailable [phone] Encounter Details Date Type Department Care Team (Late st Contact Info) Description 10/03/2023 Telephone DEPARTMENT OF UROLOGY [address], [address] [place] [address] Alton Chaney MD [address] [place] [address] [email or web address] Social History Tobacco Use Types Packs/Day Years [...] AM EST Appointment Department of Radiation Oncology [address] [place] [address] Tessa Castano PA-C [address] [place] [address] [email or web address] documented as of this encounter Visit Diagnoses Not on filedocumented in this encounter Care Teams Senior Water/Wastewater Engineer Relationship Specialty Start Date End Date Alton Marin PA [address] [place] [address] PCP - General Physician Equipment Mechanic Specialist 07/09/23 Alexsander Mckeon MD, MPH [address] [place] [address] [address] [place] [address] [email or web address] Urology 12/11/23 Vickie Anne DO [address] [place] [address] [place] [address] [email or web address] Medical [email or web address] 12/11/23 Asa Morales MD [address] [place] [address] [email or web address] Radiation Oncology 12/11/23 Alona Barlow, RN [address] [place] [address] [email or web address] Registered Nurse Oncology 05/20/24 Mick Baer, [address] [address] [email or web address] Licensed Psychologist Manager 08/21/24 documented as of this encounter Additional Source Comments The information contained in this document represents components of the legal health record. It is not the complete legal health record.[facility]
--- OUTSIDE RECORDS SUMMARY | 2025-07-13 14:42 | XMS_ITS | Encounter Summary ---
Author Organization [facility] Address [address] [place] [address] [place] [address] Phone Care Team Providers Care Medical Claims Specialist Name Role Phone FelisakeshavAlton Primary Care Provid er Alexsander Mckeon MD, MPH Unavailable [phone] Vickie Anne DO Unavailable [phone] Asa Morales MD Unavailable [phone] Alona Barlow RN Unavailable [email or web address] Mick Baer [facility] Unavailable [phone] Encounter Details Date Type Department Care Team (Late st Contact Info) Description 10/01/2023 Telephone DEPARTMENT OF UROLOGY [address] [facility], [address] [place] [address] Alton Chaney MD [address] [place] [address] [email or web address] Social History Tobacco Use Types Packs/Day Years [...] AM EST Appointment Department of Radiation Oncology [address] [place] [address] Tessa Castano PA-C [address] [place] [address] [email or web address] documented as of this encounter Visit Diagnoses Not on filedocumented in this encounter Care Teams Medical Claims Specialist Relationship Specialty Start Date End Date Alton Marin PA [address] [place] [address] PCP - General Physician Aviation Support Equipment Repairer 07/09/23 Alexsander Mckeon MD, MPH [address] [place] [address] [address] [place] [address] [email or web address] Urology 12/11/23 Vickie Anne DO [address] [place] [address] [place] [address] [email or web address] Medical Oncology 12/11/23 Asa Morales MD [address] [place] [address] [email or web address] Radiation Oncology 12/11/23 Alona Barlow, RN [address] [place] [phone] [email or web address] Registered Nurse Oncology 05/20/24 Mick Baer, [address] [address] [email or web address] Electronic Warfare Technician 08/21/24 documented as of this encounter Additional Source Comments The information contained in this document represents components of the legal health record. It is not the complete legal health record.[facility]
--- OUTSIDE RECORDS SUMMARY | 2025-07-13 14:42 | XMS_ITS | Clinical Summary ---
Author Organization [facility] Address [address] [place] [address] Care Team Providers Care Dry Chain Puller Name Role Phone Anthony Marin Primary Care Provider [phone] Allergies Active Allergy Reactions Criticality Noted Date [...] 1960 Hepatitis C Screening 1960 Sigmoidoscopy 1960 Medicare AWV 1959 Pneumococcal Vaccine: 50+ Years (1 of 1 - PCV) 2008 Zoster Vaccines (1 of 2) 2008 Alcohol/Substance Use Screening 09/10/2024 Depression Screening and Follow-Up 09/10/2024 Health Care Proxy Review 09/10/2024 Social Drivers of Health Annual Screening 09/10/2024 COVID-19 Vaccine (6 - season) 2025 07/23/2022, 01/27/2022, 08/07/2021, Additional history exists Influenza Vaccine (#1) 2025 2, 06/21/2021, 06/23/2020, Additional history exists DTaP,Tdap,and Td Vaccines (3 - Td or Tdap) 11/04/2029 11/04/2019, 07/20/2010, 06/05/2000 RSV Vaccine (60+ years old and patients) (1 - 1-dose 75+ series) 2033 Hepatitis B Vaccines Aged Out No long er eligible based on patient's age to complete this topic Insurance MEDICARE [facility] Care Teams Dry Chain Puller Relationship Specialty Start Date End Date Anthony Marin PCP - General Internal Medicine 02/16/23
--- OUTSIDE RECORDS SUMMARY | 2025-07-13 14:43 | XMS_ITS | Clinical Summary ---
Author Organization [address] [place] [address] Address [address] [place] [address] Phone Care Team Providers Care Manager Inventory Control Name Role Phone Anthony Marin Primary Care Provider [phone] Allergies Active Allergy Reactions Criticality Noted Date [...] mouth at bedtime as needed. 3 Active tamsulosin (FLOMAX) 0.4 mg 24 hr capsule Take 1 capsule (0.4 mg total) by mouth 1 (one) time each day with breakfast. Capsules should be taken 30 minutes following the same meal each day. Active tadalafiL (CIALIS) 2.5 mg tablet Take by mouth 1 (one) time each day. Active dilTIAZem (Tiadylt ER) 240 mg 24 hr capsule TAKE 1 CAPSULE BY MOUTH TWICE A DAY 180 capsule 1 5 Active cyclobenzaprine (FLEXERIL) 5 mg tablet take 1 tablet by mouth twice a day as needed for 30 days 5 Active dilTIAZem (Cardizem) 30 mg immediate release tablet Take 1 tablet (30 mg total) by mouth 4 (four) times a day if needed (as directed for palpitations). 30 each 11 5 Active primidone (MYSOLINE) 250 mg tabletIndications :Paroxysmal atrial fibrillation ([facility] V24, [facility] V28) TAKE 1 TABLET BY MOUTH EVERYDAY AT BEDTIME 90 tablet 3 5 Active phenytoin (DILANTIN) 100 mg ER capsuleIndication s:Paroxysmal atrial fibrillation ([facility] V24, [facility] V28),Acute upper respiratory infection, unspecified TAKE 2 CAPSULES BY MOUTH TWICE A DAY 360 capsule 3 5 Active Hospital, Clinic, or Other Facility Administered Medication Ordered Dose Route Frequency Start Date End Date Status aspirin EC tablet 324 mgIndications:Acute coronary syndrome ([facility] V24, [facility] V28) 324 mg oral Once 01/02/2025 Active Active Problems Problem Noted Date Diagnosed Date Prostate cancer ([facility] V24, [facility] V28) 01/03 Atrial tachycardia ([facility] V24) 10/19/2022 Palpitation 10/19/2022 Anxiety and depression 08/21/2022 Dilatation of thoracic aorta ([facility] V24) 12/23 Primary insomnia 06/04/2018 Hyperlipidemia 02/02/2016 Atrial fibrillation ([facility] V24, [facility] V28) 0 11/19/2005 Overview (08/27/2024): followeed by dr strong Last Assessment & Plan: Patient presents today for [...] 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 9) with comorbidity ([facility] V24, [facility] V28) 11/19/2005 Encounters Date Type Department Care Team Description 07/08/2025 Telephone Adult Medicine [address] [address] Anthony Marin PA 07/08/2025 Telephone Adult Medicine [address] [address] Anthony Marin PA 07/08/2025 Telephone Adult [address] [address] Anthony Marin, PA 07/08/2025 Telephone Adult Medicine [address] [address] Anthony Marin, PA from Last 3 Months Immunizations Immunization Administration Dates Next Due H1N1 Inj Preservative [...] ON THE LEFT WRIST ESOPHAGOGASTRODUODENOSCOPY 2005 PROCEDURE: [place] EGD TRANSORAL BIOPSY SINGLE/MULTIPLE; COMMENT: duodenal bx normal COLONOSCOPY W/ BIOPSIES 2005 PROCEDURE: [place] COLONOSCOPY W/BIOPSY SINGLE/MULTIPLE; COMMENT: colonic bx normal COLONOSCOPY 2012 PROCEDURE: [place] COLONOSCOPY FLX DX W/COLLJ SPEC WHEN PFRMD; COMMENT: normal OTHER SURGICAL HISTORY 11/2021 PROCEDURE: TREAT ATRIAL FIBRILLATION/FLUTTER; COMMENT: maze procedure, left atrial appendage closure Medical History Medical History Date Comments Generalized convulsive epile psy without mention of intractable epilepsy 11/19/2005 DX:Generalized convuls bora epilepsy without mention of intractable epilepsy Atrial fibrillation (CMS/HCC V24, CMS/HCC V28) 11/19/2005 DX:Atrial fibrillation (HCC) Obesity, unspecified 11/19/2005 DX:Obesity, unspecified [...] Not Answered Alcohol Use Standard Drinks/Week Comments No 0 (1 standard drink = 0.6 oz pur e alcohol) Housing Instability Answer Date Recorde d Are you worried that in the next 2 months you may not have stable housing? No 01/02/2025 Food Access & Nutrition Answer Date Rec orded Do you have access to a vari ety of food including fruits and vegetables? Yes 01/02/2025 Access to Healthcare Answer Date Record ed Within the last 3 months, ho w many times did you visit the emergency department for your medical care? 0 01/02/2025 Health Literacy Answer Date Recorded How often do you need to hav e someone help you when you read instructions, pamphlets, or other written material from your doctor or pharmacy? Never 01/02/2025 Caregiver: How often do you need to have someone help you when you read instructions, pamphlets, or other written material from your doctor or pharmacy? Not on file 01/02/2025 Financial Risk Answer Date Recorded How hard is it for you to pa y for the very basics like food, housing, medical care, and air conditioning / heating? Not very hard 01/02/2025 Transportation Answer Date Recorded Has the lack of transportati on kept you from meetings, work, or from getting things needed for daily living? No Has the lack of transportati on kept you from medical appointments or from getting medications? No 01/02/2025 Social Isolation Answer Date Recorded How often do you feel lonely or isolated from those around you? Sometimes 01/02/2025 Food Risk Answer Date Recorded Within the past 12 months we worried whether our food would run out before we got money to buy more. Never true 01/02/2025 Within the past 12 months th e food we bought just didn't last and we didn't have money to get more. Never true 01/02/2025 Dependent Care Answer Date Recorded Do you need help finding or paying for care for your loved ones. For example, child care center assistant director or elderly care for an older adult? No 01/02/2025 Education Answer Date Recorded Do you think completing more education or training, like finishing a GED, going to college, or learning a trade, would be helpful for you? No 01/02/2025 Employment and Income Answer Date Recor ded During the last four weeks, have you been actively looking for work? No 01/02/2025 Living Situation Answer Date Recorded What is your living situation? Unrecognized valu e 01/02/2025 Sex and Gender Information Value Date Recorded Sex Assigned at Not on file Legal Sex Male 11:11 AM EST Gender Identity Not on file Sexual Orientation Not on file Obstetrics History Last Filed Vital Signs Vital Sign Reading Time Taken Comments Blood Pressure 118/70 01/06/2025 2:25 PM EDT Pulse 57 01/05/2025 2:06 PM EDT Temperature 36.7 C (98 F) 01/05/2025 2:06 PM EDT Respiratory Rate 16 01/05/2025 2:06 PM EDT Oxygen Saturation 99% 01/02/2025 2:54 PM EDT Inhaled Oxygen Concentration - - Weight 108 kg (238 lb) 01/06/2025 2:25 PM EDT Height 175.3 cm (5' 9 ) 01/06/2025 2:25 PM EDT Body Mass Index 35.15 01/06/2025 2:25 PM EDT Plan of Treatment Upcoming Encounters Date Type Department Care Team (Late st Contact Info) Description 07/27/2025 9:00 AM EST Office Visit Adult Medicine [address] [address] Anthony Marin PA [address] [place] [phone] 08/12/2025 2:30 PM EST Ancillary Procedure [facility] [address] [facility] [address] [place] [address] Health Maintenance Due Date Last Done Comments Pneumococcal Vaccine: 50+ Years (1 of 2 - PCV) 1977 Zoster Vaccines (1 of 2) 1977 RSV Immunization Adult Patients (1 - Risk 50-74 years 1-dose series) 2008 Medicare Annual Wellness Visit 01/03/2025 01/04/2024 COVID-19 Vaccine ( - season) 2025 07/23/2022, 01/27/2022, 08/07/2021, Additional history exists Influenza Vaccine (#1) 2025 , 07/23/2023, 07/23/2022, Additional history exists Social Influencers of Health Screening 01/02/2026 01/02/2025 Falls Risk Assessment 01/05/2026 01/05/2025 Cholesterol Screening (Lipid Panel) 05/14/2029 05/14/2024, 05/14/2024 DTaP,Tdap,and Td Vaccines (3 - Td or Tdap) 11/04/2029 11/04/2019, 07/20/2010, 06/05/2000 Colorectal Cancer Screening: Colonoscopy 06/28/2033 06/28/2023 Hepatitis C Screening Completed 11/04/2018 Depression Screening Completed 01/05/2025, 01/04/20 24 HIB Vaccines Aged Out No longer eligi [...] age to complete this topic Meningococcal B Vaccine Aged Out No l onger eligible based on patient's age to complete this topic RSV Immunization Patients Under 20 months Aged Out No longer eligible based on patient's age to complete this topic Varicella Vaccines Aged Out No longer eligible based on patient's age to complete this topic Procedures Procedure Name Priority Date/Time Associated Diagnosis Comments EXTERNAL CLINICAL LAB 06/22/2025 EXTERNAL CLINICAL LAB 06/22/2025 LIPID PANEL Routine 05/14/2024 DEPRESSION SCREENING Routine 01/04/2024 COLONOSCOPY Routine 06/28/2023 HEPATITIS C SCREENING Routine 11/04/2018 from Last 3 Months or Most Recently Relevant to Health Maintenance Results * External clinical lab (06/22/2025) Only the most recent of2 resultswithin the time period is included. us Provider [facility] LAB BLOOD ORDERABLES Fin al Result * Lipid panel (05/14/2024) [facility] LDL/HDL Ratio 0 Comment:No Interpretation, A bstracted Triglycerides 0 mg/dL Comment:No Interpretation, A bstracted Cholesterol 0 mg/dL Comment:No Interpretation, A bstracted HDL 0 mg/dL Comment:No Interpretation, A bstracted LDL Cholesterol 0 mg/dL Comment:No Interpretation, A bstracted Blood Venous blood specimen / Unknown [facility] Provider LAB BLOOD ORDERABLES Vivian l Result * Depression Screening (01/04/2024) [facility] Depression Screening Abstracted [facility] Provider HEALTH MAINTENANCE Final Result * Colonoscopy (06/28/2023) [facility] Colonoscopy No Interpretation , Abstracted Anatomical Region Laterality Modality Other [facility] Provider HEALTH MAINTENANCE Final Result * Hepatitis C Screening (11/04/2018) [facility] Hepatitis C Screening Abstracted Result [facility] Provider HEALTH MAINTENANCE Final Result from Last 3 Months or Most Recently Relevant to Health Maintenance Insurance MEDICARE [facility] Care Teams Manager Inventory Control Relationship Specialty Start Date End Date Anthony Marin PA [address] [place] [address] PCP - General Internal Medicine 01/02/25
--- OUTSIDE RECORDS SUMMARY | 2025-07-13 14:43 | XMS_ITS | Encounter Summary ---
Author Organization [facility] Address [address] [place] [address] Care Team Providers Care Color Specialist Name Role Phone Anthony Marin Primary Care Provider [phone] Encounter Details Date Type Department Care Team ([facility] st Contact Info) Description 07/08/2025 Telephone Adult Medicine [address] [phone] Anthony Marin PA [address] [place] [address] Social History Tobacco Use Types Packs/Day Years [...] for your loved ones. For example, child daycare worker or elderly care for an older adult? [...] on file documented as of this encounter Plan of Treatment Upcoming Encounters Date Type Department Care Team (Late st Contact Info) Description 07/27/2025 9:00 AM EST Office Visit Adult Medicine [address] [address] Anthony Marin PA [address] [place] [phone] 08/12/2025 2:30 PM EST Ancillary Procedure [facility] [address] [place] [address] documented as of this encounter Visit Diagnoses Not on filedocumented in this encounter Additional Health Concerns Assessment Noted Time PHQ-9 Depression Total Score: 1 01/06/20 2:03 PM EDT A fall risk assessment has been complete d for the patient 01/05/2025 2:05 PM EDT documented as of this encounter Care Teams Color Specialist Relationship Specialty Start Date End Date Anthony Marin PA [address] [place] [address] PCP - General Internal Medicine 01/02/25 documented as of this encounter
--- OUTSIDE RECORDS SUMMARY | 2025-07-13 14:43 | XMS_ITS | Encounter Summary ---
Author Organization [facility] Address [address] [place] [address] Care Team Providers Care Asset Analyst Name Role Phone Anthony Marin Primary Care Provider [phone] Reason for Visit * Reason Onset Date Comments Breast Mass 07/08/2025 Encounter Details Date Type Department Care Team ([facility] st Contact Info) Description 07/08/2025 Telephone Adult Medicine [address] [phone] Anthony Marin PA [address] [place] [phone] Social History Tobacco Use Types Packs/Day Years [...] for your loved ones. For example, child development associate teacher or elderly care for an older adult? [...] as of this encounter Progress Notes * Rosalino Soto RN - 07/08/2025 1:09 PM EDT Called and spoke with pt. Pt c/o lumps in both breast. Right bigger than left and pain in nipples no discharge no redness no warmth to touch. Noticed 4 days ago. Pt c/o incision sites from cardiac ablation are irritating also. Pt concerned has prostate CA appt for tomorrow * Reina Elizabeth - 07/08/2025 12:15 PM EDT Patient call requires triage: Symptoms patient is presenting: patient has been getting treatment for prostate cancer, had radiation treatment in September. This is going well. He noticed a lump in his pectoral area, right side, possibly on both sides, has pain in the nipple area also. Years ago he had a cyst in the nipple area and had this excised here in the building when we had a surgery department in [place]. Patient would like to see someone for this. Does not want to go to at [facility]. Please advise. How long has patient had these symptoms?: 3-4 days ago For ALL patients calling to schedule any appointment (routine, sick visit, follow up, consult, etc.) in the outpatient setting please ask the following questions: Do you have fever of higher than 101, sore throat with difficulty swallowing or severe shortness ofbreath? no If YES to any of these above symptoms, send a message to triage and do not book. Red dot. If no, an audio or video visit should be booked. Have you had close contact with someone with Coronavirus in the last 14 days? no Have you traveled abroad? no Have you traveled recently to another state outside of [place], [place], [place], [place], [place], [place], [place]? no o If yes, did you quarantine for 14 days or have a negative covid test? no If yes to any of the above, patient is not to be scheduled in office until after 14 day quarantine or negative covid test. If pain or injury related was it due to an accident at work or from a motor vehicle accident? If yes, date of accident/Injury: No If yes, gather 3rd democrat insurance information Third Constitution Party Information: not applicable PCP: ELDA Yepez Payor: MEDICARE / Plan: MEDICARE PART A & B / Product Type: Medicare / documented in this encounter Plan of Treatment Upcoming Encounters Date Type Department Care Team (Late st Contact Info) Description 07/27/2025 9:00 AM EST Office Visit [address] [address] Anthony Marin PA [address] [place] [address] 08/12/2025 2:30 PM EST Ancillary Procedure [facility] [address] [place] [address] documented as of this encounter Visit Diagnoses Not on filedocumented in this encounter Additional Health Concerns Assessment Noted Time PHQ-9 Depression Total Score: 1 01/06/20 2:03 PM EDT A fall risk assessment has been complete d for the patient 01/05/2025 2:05 PM EDT documented as of this encounter Care Teams Asset Analyst Relationship Specialty Start Date End Date Anthony Marin PA [address] [place] [address] PCP - General Internal Medicine 01/02/25 documented as of this encounter
--- OUTSIDE RECORDS SUMMARY | 2025-07-13 14:43 | XMS_ITS | Encounter Summary ---
Author Organization [facility] Address [address] [place] [address] Care Team Providers Care Engineering Production Liaison Name Role Phone Anthony Marin Primary Care Provider [phone] Encounter Details Date Type Department Care Team ([facility] st Contact Info) Description 07/08/2025 Telephone Adult Medicine [address] [phone] Anthony Marin PA [address] [place] [address] Social History Tobacco Use Types [...] care for your loved ones. For example, summer child caregiver or elderly care for an older adult? [...] 9:00 AM EST Office Visit Adult Medicine [address] [address] Anthony Marin PA [address] [place] [phone] 08/12/2025 2:30 PM EST Ancillary Procedure [facility] [address] [place] [address] documented as of this encounter Visit Diagnoses Not on filedocumented in this encounter Additional Health Concerns Assessment Noted Time PHQ-9 Depression Total Score: 1 01/06/20 2:03 PM EDT A fall risk assessment has been complete d for the patient 01/05/2025 2:05 PM EDT documented as of this encounter Care Teams Engineering Production Liaison Relationship Specialty Start Date End Date Anthony Marin PA [address] [place] [address] PCP - General Internal Medicine 01/02/25 documented as of this encounter
--- OUTSIDE RECORDS SUMMARY | 2025-07-13 14:43 | XMS_ITS | Patient Health Record ---
Author [facility] Address [address] [place] [address] Care Team Providers Care Account Developer Name Role Phone Anthony Machado Primary Care Provider Unav ailable Clifford, Roxy Unavailable [phone] Allergies Allergen (clinical drug ingredient) Drug/Non Drug Allergy documented on EMR Reaction Allergy Type Onset Date Status Adhesive Taps (uncoded) Unknown Allergy Active Reason For Referral No Information Medications Medication SIG (Take, Route, Fr equency, Duration) Notes Start Date End Date Status dilTIAZem HCl Active Tamsulosin HCl Activ e Primidone Active Phenytoin Active Tadalafil Active clonazePAM Active Social History Tobacco Use: Social History [...] Never (0 point) Points 0 Interpretation Negative Encounters Encounter Location Date Provider Diagnosis [facility] [address] [place] [address] 02/24/2025 Roxy Black [facility] [address] [place] [address] 05/05/2025 Roxy Horton Plan Of Treatment No Information Insurance Providers Payer Name Payer Address Payer Phone Subscriber Number Group Number Insured Name Patient Relationship to Insured Coverage Start Date Coverage End Date Medicare National [employer] [address] [place] [address] [id number] Anthony Cleaning Self - patient is the insured AARP Secondary to Medicare [address] [place] [address] [id number] Anthony Cleaning Self - patient is the insured Medical (General) History Medical History History ICD Code Arthritis (OA, RA) Back, Hip, Knee Pain Broken Bone(s) Carcer Epilepsy/Seizures Headaches/Migraines Measles Mumps A fib Chicken Pox Surgical History Surgery Date(Month/Year) bone graft 1976 cardiac ablation 11/2021 catheter ablation 03/2023, 06/2023
--- OUTSIDE RECORDS SUMMARY | 2025-07-13 14:43 | XMS_ITS | Encounter Summary ---
Author Organization [facility] Address [address] [facility] [address] [place] [address] Phone Care Team Providers Care Vocal Performer Name Role Phone Alton Marin Primary Care Provid er Alexsander Mckeon MD, MPH Unavailable [phone] Vickie Anne DO Unavailable [phone] Asa Morales MD Unavailable [phone] Alona Barlow RN Unavailable [email or web address] Mick Baer CLAY STRUCTURE BUILDER AND SERVICER Unavailable [phone] Encounter Details Date Type Department Care Team (Late st Contact Info) Description 06/19/2024 Procedure Pass [facility] [place] [address] Social History Tobacco Use Types Packs/Day Years Used Date Smoking Tobacco: Never Smokeless Tobacco: Never Alcohol Use Standard Drinks/Week Comments Yes 0 (1 standard drink = 0.6 oz pur e alcohol) socially - a few beers/year Child or Family Care Answer Date Record ed Do you have problems with on e of the following making it difficult for you to work, study, or receive health care? No 01/20/2024 Education Answer Date Recorded Are you interested in help w ith more adult education (for example, completing high school, GED, job training, learning the [place] language, technical skills, or developing parenting skills)? No 01/20/2024 Are you concerned about learning? Not on file 01/20/2024 No 01/20/2024 Yes 01/20/2024 Food Answer Date Recorded Within the past 6 months we worried whether our food would run out before we got money to buy more. Never True 01/20/2024 Within the past 6 months the food we bought just didn't last and we didn't have enough money to get more. Never True Residential Stability Answer Date Recor ded What is your housing situation today? I have brayden sing 01/20/2024 How many times have you move d in the past 12 months? Zero (I did not move) 01/20/2024 Paying for Meds Answer Date Recorded Do you have trouble paying for medicines? I aly se not to answer 01/20/2024 Paying Utility Bills Answer Date Record ed Do you have trouble paying your heating or elect ricity bill? No 01/20/2024 Transportation Answer Date Recorded Has the lack of transportati on kept you from medical appointments or from getting medications? No 01/20/2024 Digital Access Answer Date Recorded No 07/09/2023 [...] AM EST Appointment Department of Radiation Oncology [address] [place] [address] Tessa Castano PA-C [address] [place] [address] [email or web address] documented as of this encounter Visit Diagnoses Not on filedocumented in this encounter Care Teams Vocal Performer Relationship Specialty Start Date End Date Alton Marin PA [address] [place] [address] PCP - General Physician Law Secretary 07/09/23 Alexsander Mckeon MD, MPH [address] [facility] [address] [place] [address] [email or web address] 12/11/23 Vickie Anne DO [address] [place] [address] [email or web address] 12/11/23 Asa Morales MD [address] [place] [address] [email or web address] 12/11/23 Alona Barlow, JAMIE [address] [place] [address] [email or web address] Nurse [email or web address] 05/20/24 Mick Baer, CLAY STRUCTURE BUILDER AND SERVICER [address] [place] [address] [email or web address] Operator 08/21/24 documented as of this encounter Additional Source Comments The information contained in this document represents components of the legal health record. It is not the complete legal health record.[facility]
--- OUTSIDE RECORDS SUMMARY | 2025-07-13 14:43 | XMS_ITS | Clinical Summary ---
Author Organization [facility] Address [address] [place] [address] Care Team Providers Care Freight Unloader Name Role Phone Anthony Marin PA-C Primary Care Provider Un available Allergies Active Allergy Reactions Criticality Noted Date Comments Adhesives/Tape Unknown/Patient and Family Unable to Define Medium 10/02/2024 Tens Therapy Replace Back Pads Unknown/Patient and Family Unable to Define Medium 10/02/2024 Medications phenytoin (DILANTIN) 100 MG ER capsule Take [...] tablet Take 5 mg by mouth. Active Social History Tobacco Use Types Packs/Day Years Used Date Smoking Tobacco: Never Smokeless Tobacco: Never Tobacco Cessation:Counseling Given: Not Answered Sex and Gender Information Value Date Recorded Sex Assigned at Not on file Legal Sex Male 5:12 PM EDT Gender Identity Not on file Sexual Orientation Not on file Plan of Treatment Health Maintenance Due Date Last Done Comments Advance Care Planning 1960 Hepatitis C Virus Screening 1960 DTaP/Tdap/Td Vaccines (1 - Tdap) 1977 Colonoscopy 2003 Pneumococcal Vaccines 50+ (1 of 1 - PCV) 2008 Zoster (Shingles) Vaccine (1 of 2) 2008 Influenza Vaccine 04/10/2025 05/29/2024, , 06/23/2020, Additional history exists COVID-19 Vaccine ( season) 2025 07/23/2022, 01/27/2022, 08/07/2021, Additional history exists RSV Vaccine 50 years and older and Patients (1 - 1-dose 75+ series) 2033 Hepatitis B Vaccines Aged Out No long er eligible based on patient's age to complete this topic Insurance MEDICARE PART A & B [facility] MEDICARE PART A & B AARP Care Teams Freight Unloader Relationship Specialty Start Date End Date Anthony Marin PA-C PCP - General Internal Medicine 07/09/23
--- OUTSIDE RECORDS SUMMARY | 2025-07-13 14:43 | XMS_ITS | Encounter Summary ---
Author Organization [facility] Address [address] [place] [address] Care Team Providers Care Fermenter Champagne Name Role Phone Anthony Marin Primary Care Provider [phone] Encounter Details Date Type Department Care Team ([facility] st Contact Info) Description 07/08/2025 Telephone Adult Medicine [address] [phone] Anthony Marin PA [address] [place] [address] Social History Tobacco Use Types [...] your loved ones. For example, child care worker or elderly care for an older [...] as of this encounter Progress Notes * Mattie Juares RN - 07/08/2025 2:43 PM EDT Spoke with the pt and he would like to wait to see PCP Thinks that the tenderness int he bilateral nipple area is related to working out. Lifts wts for 2 hours at a time and wears a synthetic vest that causes additional sweating. Thinks the lumps in bilateral nipple area is related to this and would like to give it some time toresolve on its own. Will call for sooner appt if worsening symptoms Scheduled eval for 07/27 at 8:45 am with PCP * Leah Rogel - 07/08/2025 2:26 PM EDT Patient is calling for a sooner apt, patient was schedule for 07/09/25 for breast lumps, Patient stated he wants a later apt with specific dates, due to Drs. Being over book patient denied all apt available and prefer for a nurse to f/u due to a nurse booking his office visit with Dr. Richter. Patient does not want to be schedule with Dr. Richter. documented in this encounter Plan of Treatment Upcoming Encounters Date Type Department Care Team (Late st Contact Info) Description 07/27/2025 9:00 AM EST Office Visit Adult Medicine [address] [address] Anthony Marin PA [address] [place] [phone] 08/12/2025 2:30 PM EST Ancillary Procedure [facility] [address] [address] documented as of this encounter Visit Diagnoses Not on filedocumented in this encounter Additional Health Concerns Assessment Noted Time PHQ-9 Depression Total Score: 1 01/06/20 2:03 PM EDT A fall risk assessment has been complete d for the patient 01/05/2025 2:05 PM EDT documented as of this encounter Care Teams Fermenter Champagne Relationship Specialty Start Date End Date Anthony Marin PA [address] [place] [address] PCP - General Internal Medicine 01/02/25 documented as of this encounter
--- OUTSIDE RECORDS SUMMARY | 2025-07-13 14:43 | XMS_ITS | Clinical Summary ---
Author Organization [facility] Address [address] [place] [address] Phone Care Team Providers Care Game Agent Name Role Phone Felisakeshav Alton SCHROEDER Primary Care Provid er Alexsander Mckeon MD, MPH Unavailable [phone] Vickie Anne DO Unavailable [phone] Asa Morales MD Unavailable [phone] Alona Barlow RN Unavailable [email or web address] Mick Baer SUPERVISORY INVESTIGATIVE SPECIALIST Unavailable [phone] Allergies Active Allergy Reactions Criticality Noted Date Comments Adhesive Itching,Rash Low 08/24/2023 Latex Rash Medium 04/24/2023 Medications dilTIAZem (CARDIZEM CD) 240 MG 24 hr capsule Take 240 mg by mouth daily. 3 Active phenytoin (DILANTIN) 100 MG ER capsule Take 200 mg by mouth 2 (two) times a day. Active primidone (MYSOLINE) 250 MG tablet take 1 tablet by mouth everyday at bedtime Active clonazePAM (KLONOPIN) 0.5 MG tablet Take 1 mg by mouth 2 (two) times a day. 1/2 tablet in the morning 1 1/2 tablets at night time Active tadalafiL (CIALIS) 5 MG tablet Take 1 tablet (5 mg total) by mouth daily. 30 tablet 3 Active tamsulosin (FLOMAX) 0.4 mg Cap TAKE 1 CAPSULE BY MOUTH EVERY DAY 90 capsule 1 Active tamsulosin (FLOMAX) 0.4 mg Cap TAKE 1 CAPSULE BY MOUTH EVERY DAY 90 capsule 1 5 025 Discontinued Active Problems Problem Noted Date Diagnosed Date Atypical atrial flutter 01/21/2024 Malignant neoplasm of prostate 11/29/2023 Cancer Staging:Clinical:Stage IIIA(cT1c, cN0, cM0, PSA: 22, Grade Group: 2) - Signed by Gracy Sorensen MD, PhD on 11/30/2023 Seizure 08/28/2023 Paroxysmal atrial fibrillation 03/31/2021 Overview (08/28/2023): Added automatically from request for surgery [id number] Resolved Problems Problem Noted Date Diagnosed Date Resolved Date Arrhythmia 08/28/2023 08/28/2023 Encounters Date Type Department Care Team Description 07/05/2025 Refill Department of Radiation Oncology [address] [place] [address] Haseeb Muir, ANAT Medication Refill 06/24/2025 9:55 AM EDT - 06/24/2025 11:59 PM EDT Hospital Encounter Department of Radiation Oncology [address] [place] [address] Asa Morales MD Discharge Disposition: Home or Self Care 06/22/2025 10:03 AM EDT - 06/22/2025 11:59 PM EDT Hospital Encounter [facility] [address] [place] [address] Tessa Castano PA-C Discharge Disposition: Home or Self Care from Last 3 Months Social History Tobacco Use Types Packs/Day Years Used Date Smoking Tobacco: Never Smokeless Tobacco: Never Tobacco Cessation:Counseling Given: Not Answered Alcohol Use Standard Drinks/Week Comments Yes 0 [...] high school, GED, job training, learning the Cypriot language, technical skills, or developing parenting skills)? [...] your housing situation today? I have brayden zavala 01/20/2024 How many times have you move d in the past 12 months? Zero (I did not move) 01/20/2024 Paying for Meds Answer Date Recorded Do you have trouble paying for medicines? I aly not to answer 01/20/2024 Paying Utility Bills [...] with a working camera? Not on file Intimate Partner Violence Answer Date R ecorded Are you denied basic needs s uch as food, clothing, or medical care? No 08/26/2024 In the past 12 months have y ou been in a relationship with a person who hurts, threatens, or tries to control you? No 08/26/2024 Are you denied basic needs s uch as food, clothing, or medical care? No 08/26/2024 In the past 12 months have y ou been in a relationship with a person who hurts, threatens, or tries to control you? No 08/26/2024 Sex and Gender Information Value Date Recorded Sex Assigned at Male 07/09/2023 3:00 PM EDT Legal Sex Male 2:59 PM EDT Gender Identity Male 07/09/2023 3:00 PM EDT Sexual Orientation Straight 07/09/2023 3: 00 PM EDT Last Filed Vital Signs Vital Sign Reading Time Taken Comments Blood Pressure 151/74 09/18/2024 4:15 PM EST Pulse 72 09/18/2024 4:15 PM EST Temperature 36.9 C (98.4 F) 09/18/2024 4:14 PM EST Respiratory Rate 16 09/18/2024 4:14 PM EST Oxygen Saturation 92% 09/18/2024 4:15 PM EST Inhaled Oxygen Concentration - - Weight 104.3 kg (230 lb) 08/26/2024 12:17 PM EST Height 175.3 cm (5' 9 ) 08/26/2024 12:17 PM EST Body Mass Index 33.97 08/26/2024 12:17 PM EST Plan of Treatment Upcoming Encounters Date Type Department Care Team (Late st Contact Info) Description 09/23/2025 9:00 AM EST Appointment Department of Radiation Oncology [address] [place] [address] Tessa Castano PA-C [address] [place] [address] [email or web address] Health Maintenance Due Date Last Done Comments PHENYTOIN (DILANTIN) LEVEL 1960 DEPRESSION SCREENING 1970 HEPATITIS C SCREENING 1976 PNEUMOCOCCAL VACCINES (50+ years) (1 of 2 - PCV) 1977 ZOSTER VACCINES (1 of 2) 1977 COLOGUARD 2003 COLONOSCOPY 2003 COLORECTAL CANCER SCREENING 2003 FIT TEST 2003 FOBT 2003 SIGMOIDOSCOPY 2003 VIRTUAL COLONOSCOPY 2003 INFLUENZA VACCINE (#1) 2025 , 07/23/2023, 07/23/2022, Additional history exists COVID-19 VACCINE ( season) 2025 07/23/2022, 01/27/2022, 08/07/2021, Additional history exists SCREENING FOR DIABETES 12/23/2027 12/22/2024, 2021 LIPID PANEL 05/14/2029 05/14/2024, 05/14/2024 Adult Td,Tdap Booster 11/04/2029 11/04/2019 , 07/20/2010, 06/05/2000 RSV VACCINE (1 - 1-dose 75+ series) 2033 SMOKING STATUS SCREENING (Once After 26 Yrs) Completed 08/26/2024 HEPATITIS A VACCINES Aged Out No long er eligible based on patient's age to complete this topic HIB VACCINES Aged Out No longer eligi ble based on patient's age to complete this topic MENINGOCOCCAL VACCINES (ACWY) Aged Out No longer eligible based on patient's age to complete this topic MENINGOCOCCAL VACCINES (B) Aged Out N o longer eligible based on patient's age to complete this topic Medical Devices Implanted Type Area Continuity Writer Device Identifier Shelf Expiration Date Model / Serial / Lot Left [employer] Appendage Clip System [employer] - [id number] Implanted:Qty: 1 on 08/26/2024 by Calvin Galicia MD at [facility] N/A: Prostate [employer] JONO [id number] 01/31/2026 [id number] / / [id number] Procedures Procedure Name Priority Date/Time Associated Diagnosis Comments PSA DIAGNOSTIC (MONITORING) Routine 06/22/2025 10:11 AM EDT Malignant neoplasm of prostate RESEARCH BIOBANK BLOOD DRAW Routine 06/22/2025 10:11 AM EDT LIPID PANEL Routine 05/14/2024 11:14 AM EDT History of cardioversion History of cardiac radiofrequency ablation Atrial tachycardia Anxiety Depression, unspecified depression type Dilation of thoracic aorta S/P left atrial appendage ligation H/O maze procedure Primary insomnia Mixed hyperlipidemia Paroxysmal atrial fibrillation Severe obesity (BMI 35.0-35.9 with comorbidity) from Last 3 Months or Most Recently Relevant to Health Maintenance Results * [facility] Biobank Blood Draw (06/22/2025 10:11 AM EDT) [facility] PURPLE DRAW 1 Drawn and Received [facility] PURPLE DRAW 2 Drawn and Received [facility] BIOBANK RED DRAW 1 Drawn and Received [facility] Blood 06/22/2025 10:1 1 AM EDT 06/22/2025 10:16 AM EDT Doyle Cadena MD, PhD LAB BLOOD ORDERABLES Final Result Performing Organization Address [facility] Co de Phone Number [address] [address] * PSA diagnostic (monitoring) (06/22/2025 10:11 AM EDT) PSA 2.04 0 - 4.00 ng/mL [facility] Comment: Test Methodology Francisco e801 Patient results determined by assays using different manufacturers or methods may not be comparable. Blood 06/22/2025 10:1 1 AM EDT 06/22/2025 10:16 AM EDT Tessa Castano PA-C LAB BLOOD BKR ORDERABLES Fi nal Result Performing Organization Address [facility]/ZIP Co de Phone Number [address] [address] * (ABNORMAL) Lipid panel (05/14/2024 11:14 AM EDT) HDL 91 mg/dL [facility] Comment: Interpretation <40 mg/dL: Low HDL cholesterol (major risk factor for CHD) Greater than or equal to 60 mg/dL: High HDL cholesterol ( negative risk factor for CHD) HDL - cholesterol is affected by a number of factors, e.g. smoking, excerise, hormones, sex and age. CHOLESTEROL 232 0 - 240 mg/dL [facility] TRIGLYCERIDES 60 30 - 160 mg/dL [facility] LDL 129 50 - 129 mg/dL [facility] Comment: LDL levels in terms of risk for coronary heart disease: <100 mg/dL: Optimal 100-129 mg/dL: Near or above optimal 130-159 mg/dL: Borderline high 160-189 mg/dL: High >190 mg/dL: Very High CARDIAC RISK RATIO 2.5(L) 3.4 - 5.0 C [facility] Blood 05/14/2024 11:1 4 AM EDT 05/14/2024 11:21 AM EDT Alton SCHROEDER LAB BLOOD BKR ORDERA BLES Final Result [facility] [address] [place] [address] from Last 3 Months or Most Recently Relevant to Health Maintenance Insurance MEDICARE PART A & [place] [id number] [facility] MEDICARE SUPPLEMENT MEDICARE PART A & B MEDICARE SUPPLEMENT MEDICARE PART A & B [facility] MEDICARE SUPPLEMENT MEDICARE PART A & B MEDICARE SUPPLEMENT MEDICARE PART A & B Member Subscriber Plan / Payer ( fective 2023-) Name:Alton Cleaning Member ID:[id number] Relation to Subscriber:Self Name:Hermila Alton Subscriber ID:[id number] Payer ID:[id number] Group ID:Not on file Type:Medicare Address: [employer] [address] MEDICARE SUPPLEMENT MEDICARE PART A & B [facility] MEDICARE SUPPLEMENT Care Teams Game Agent Relationship Specialty Start Date End Date Alton Marin PA [address] [place] [phone] PCP - General Physician Legal Internship 07/09/23 Alexsander Mckeon MD, MPH [address] [place] [address] [address] [place] [address] [email or web address] Urology 12/11/23 Vickie Anne DO [address] [place] [address] [place] [address] [email or web address] Medical Oncology 12/11/23 Asa Morales MD [address] [place] [address] [email or web address] Radiation Oncology 12/11/23 Alona Barlow, JAMIE [address] [place] [address] [email or web address] Registered Nurse Oncology 05/20/24 Mick Baer, [address] [address] [email or web address] Pantograph Engraver 08/21/24 Additional Source Comments The information contained in this document represents components of the legal health record. It is not the complete legal health record.[facility]
--- OUTSIDE RECORDS SUMMARY | 2025-07-13 14:43 | XMS_ITS ---
Author Organization [facility] Address [address] [place] [address] Phone Care Team Providers Care Over Short And Damage Clerk Name Role Phone Felisakeshav Alton SCHROEDER Primary Care Provid er Alexsander Mckeon MD, MPH Unavailable [phone] Vickie Anne DO Unavailable [phone] Asa Morales MD Unavailable [phone] Alona Barlow RN Unavailable [email or web address] Mick Baer [facility] Unavailable [phone] Active Problems Problem Noted Date Diagnosed Date Atypical atrial flutter 01/21/2024 Malignant neoplasm of prostate 11/29/2023 Cancer Staging:Clinical:Stage IIIA(cT1c, cN0, cM0, PSA: 22, Grade Group: 2) - Signed by Gracy Sorensen MD, PhD on 11/30/2023 Seizure 08/28/2023 Paroxysmal atrial fibrillation 03/31/2021 Overview (08/28/2023): Added automatically from request for surgery [id number] Current Treatment and Therapy Plans No current plan information found. Past Treatment and Therapy Plans No past plan information found. Radiation Treatments * Course C1 09/16/2024 - 09/26/2024 Treatment Period Energy Fraction Dose Fractions Total Dose Plans Planned A1_Prostate^A1_Prost ate 09/16/2024 - 09/26/2024 725 cGy / 3,625 cGy Reference Points Delivered A_Prostate 09/16/2024 - 09/26/2024 3,625 cGy Resolved Problems Problem Noted Date Diagnosed Date Resolved Date Arrhythmia 08/28/2023 08/28/2023
--- OUTSIDE RECORDS SUMMARY | 2025-07-13 14:43 | XMS_ITS | Clinical Summary ---
Author Organization [facility] Address [address] [place] [address] Care Team Providers Care Fruit Loader Machine Operator Name Role Phone Felisakeshav Anthony Tellez PA-C [...] 1 - PCV) 2023 Influenza Vaccine (#1) 2025 , 07/23/2022, 07/23/2022, Additional history exists DTap / [...] age to complete this topic Care Teams Fruit Loader Machine Operator Relationship Specialty Start Date End Date Anthony Marin PA-C PCP - General Medical Services 04/24/23
--- OUTSIDE RECORDS SUMMARY | 2025-07-13 14:44 | XMS_ITS | Encounter Summary ---
Author Organization [facility] Address [address] [place] [address] [place] [address] Phone Care Team Providers Care Pickling Tank Operator Name Role Phone FelisakeshavAlton Primary Care Provid er Alexsander Mckeon MD, MPH Unavailable [phone] Vickie Anne DO Unavailable [phone] Asa Morales MD Unavailable [phone] Alona Barlow RN Unavailable [email or web address] Mick Baer [facility] Unavailable [phone] Encounter Details Date Type Department Care Team (Late st Contact Info) Description 09/05/2023 Telephone DEPARTMENT OF UROLOGY [address] [facility], [address] [place] [address] Alton Chaney MD [address] [place] [address] [email or web address] Social History Tobacco Use Types Packs/Day Years [...] AM EST Appointment Department of Radiation Oncology [address] [place] [address] Tessa Castano PA-C [address] [place] [address] [email or web address] documented as of this encounter Visit Diagnoses Not on filedocumented in this encounter Care Teams Pickling Tank Operator Relationship Specialty Start Date End Date Alton Marin PA [address] [place] [address] PCP - General Physician Extruder Operator Helper 07/09/23 Alexsander Mckeon MD, MPH [address] [place] [address] [address] [place] [address] [email or web address] Urology 12/11/23 Vickie Anne DO [address] [place] [address] [place] [address] [email or web address] Medical Oncology 12/11/23 Asa Morales MD [address] [place] [address] [email or web address] Radiation Oncology 12/11/23 Alona Barlow, RN [address] [place] [address] [email or web address] Registered Nurse Oncology 05/20/24 Mick Baer, [address] [address] [email or web address] Retort Press Operator 08/21/24 documented as of this encounter Additional Source Comments The information contained in this document represents components of the legal health record. It is not the complete legal health record.[facility]
--- OUTSIDE RECORDS SUMMARY | 2025-07-13 14:44 | XMS_ITS | Encounter Summary ---
Author Organization [facility] Address [address] [place] [address] [place] [address] Phone Care Team Providers Care Steam Shovel Runner Name Role Phone Felisakeshav Alton SCHROEDER Primary Care Provid er Alexsander Mckeon MD, MPH Unavailable [phone] Vickie Anne DO Unavailable [phone] Asa Morales MD Unavailable [phone] Alona Barlow RN Unavailable [email or web address] Mick Baer [facility] Unavailable [phone] Reason for Visit * Reason Comments Medication Refill Encounter Details Date Type Department Care Team (Late st Contact Info) Description 07/05/2025 Refill Department of Radiation Oncology [address] [place] [address] Haseeb Muir, COPYING MACHINE MECHANIC [address] [place] [address] [email or web address] Medication Refill Social History Tobacco Use Types Packs/Day Years [...] high school, GED, job training, learning the Sri [place]ankan language, technical skills, or developing parenting skills)? [...] AM EST Appointment Department of Radiation Oncology [address] [place] [address] Tessa Castano PA-C [address] [place] [address] [email or web address] documented as of this encounter Visit Diagnoses Not on filedocumented in this encounter Care Teams Steam Shovel Runner Relationship Specialty Start Date End Date Alton Marin PA [address] [place] [address] PCP - General Physician Electrical Machine Builder 07/09/23 Alexsander Mckeon MD, MPH [address] [place] [address] [address] [place] [address] [email or web address] 12/11/23 Vickie Anne DO [address] [place] [address] [email or web address] Medical Oncology 12/11/23 Asa Morales MD [address] [place] [address] [email or web address] Radiation Oncology 12/11/23 Alona Barlow RN [address] [place] [address] [email or web address] Registered Nurse Oncology 05/20/24 Mick Baer, MANAGER ACTUARIAL [address] [place] [address] [email or web address] [employer] 08/21/24 documented as of this encounter Additional Source Comments The information contained in this document represents components of the legal health record. It is not the complete legal health record.[facility]
--- OUTSIDE RECORDS SUMMARY | 2025-07-13 14:44 | XMS_ITS | Patient Health Record ---
Author Organization [facility] Address [address] [facility] [address] [place] [address] Care Team Providers Care Menhaden Fishing Crew Member Name Role Phone Hilton Tovar Unavailable [phone] Luis Beach Unavailable Unavailable Migration, Provider Unavailable Unavailable Allergies No Known Allergies Reason For Referral No Information Medications Medication SIG (Take, Route, Frequency, Duration) [...] use : no , social history : [place] Problems Problem Type SNOMED Code ICD Code Onset Dates Problem Status W/U Status Risk Notes Problem Malignant neoplasm of prostate (784030644) Malignant neoplasm of prostate (C61) 2023 Active confirmed Problem Overweight (772555345) Overweight (E66.3) 2022 Active confirmed Problem Typical atrial flutter (275446384) Typical atrial flutter (I48.3) 2022 Active confirmed Problem Atrial fibrillation (35375690) Unspecified atrial fibrillation (I48.91) 2022 Active confirmed Problem Atrial premature depolarization (235998356) Atrial premature depolarization (I49.1) 2022 Active confirmed Problem Ventricular premature depolarization (490659838) Ventricular premature depolarization (I49.3) 2022 Active confirmed Problem Palpitations (35642733) Palpitations (R00.2) 2022 Active confirmed Problem Seizure (15461344) Unspecified convulsions (R56.9) 2022 Active confirmed Problem Electrocardiogram abnormal (225782484) Abnormal electrocardiogram [ECG] [EKG] (R94.31) 2022 Active confirmed Problem Aftercare (518701327) Encounter for other specified aftercare (Z51.89) 2022 Active confirmed Notes::Chavarria ccessful PVI ablation ; Problem Long-term current use of anticoagulant (106669374) senior care (current) use of anticoagulants (Z79.01) 2022 Active confirmed Problem Long-term current use of drug therapy (410681505) Other exterminator helper termite (current) drug therapy (Z79.899) 2022 Active confirmed Problem History of fall (523516119) History of falling (Z91.81) 2022 Active confirmed Problem Postprocedural states (911377624) Other specified postprocedural states (Z98.890) Active confirmed Notes::by Dr. De Guzman; Problem Body mass index 30.00 to 34.99 (721141946690851) Body mass index (BMI) 33.0-33.9, adult (Z68.33) 2023 Active confirmed Problem Obese class II (521202313260315) Body mass index (BMI) 35.0-35.9, adult (Z68.35) 2022 Active confirmed Problem Postprocedural cardiogenic shock, initial encounter (T81.11XA) 2022 Active confirmed Notes::in [place] etts.; Encounters Encounter Location Date Provider Diagnosis Migrated_Facility 0 0 01/31/2025 Provider Migration Migrated_Facility 0 0 02/01/2025 [place] [facility] [address] [address] 02/20/2025 Hilton Tovar Plan Of Treatment No Information Insurance Providers Payer Name Payer Address Payer Phone Subscriber Number Group Number Insured Name Patient Relationship to Insured Coverage Start Date Coverage End Date [place] [address] [place] [address] [id number] Anthony Cleaning Self - patient is the insured 3 IRA [facility] Supplemental [address] [place] [address] [phone] [id number] Anthony Cleaning Self - patient is the insured 3 Medical (General) History Surgical History Surgery Date(Month/Year) s/p Mini Maze 11/2022 PAST SurgHX Till 0 02/20/2024 S/p PVI ablation 06/15/2023 PAST SurgHX Till 02/20/2024
--- OUTSIDE RECORDS SUMMARY | 2025-07-13 14:44 | XMS_ITS | Encounter Summary ---
Author Organization [facility] Address [address] [place] [address] [place] [address] Phone Care Team Providers Care Retail Buyer Name Role Phone Alton Marin Primary Care Provid er Alexsander Mckeon MD, MPH Unavailable [phone] Vickie Anne DO Unavailable [phone] Asa Morales MD Unavailable [phone] Alona Barlow RN Unavailable [email or web address] Mick Baer CASH REGISTER SERVICER Unavailable [phone] Encounter Details Date Type Department Care Team (Late st Contact Info) Description 08/26/2024 Procedure Pass [facility] [place] [facility] [address] [place] [address] Social History Tobacco Use Types Packs/Day Years [...] high school, GED, job training, learning the Greek language, technical skills, or developing parenting skills)? [...] AM EST Appointment Department of Radiation Oncology [address] [address] Tessa Castano PA-C [address] [place] [address] [email or web address] documented as of this encounter Visit Diagnoses Not on filedocumented in this encounter Care Teams Retail Buyer Relationship Specialty Start Date End Date Alton Marin PA [address] [place] [address] PCP - General Physician Finishing Supervisor Plastic Sheets 07/09/23 Alexsander Mckeon MD, MPH [address] [place] [address] [address] [place] [address] [email or web address] 12/11/23 Vickie Anne DO [address] [place] [address] [email or web address] Medical Oncology 12/11/23 Asa Morales MD [address] [place] [address] [email or web address] [email or web address] Oncology 12/11/23 Alona Barlow, JAMIE [address] [place] [address] [email or web address] Registered Nurse Oncology 05/20/24 Mick Baer, CASH REGISTER SERVICER [address] [place] [address] [email or web address] Coordinator 08/21/24 documented as of this encounter Additional Source Comments The information contained in this document represents components of the legal health record. It is not the complete legal health record.[facility]
--- OUTSIDE RECORDS SUMMARY | 2025-07-13 14:44 | XMS_ITS ---
Author Name [facility] Organization Unknown History of Medication Use Medication Directions Dispensed Refills Start Date End Date Stat us dilTIAZem (Tiadylt ER) 240 mg 24 hr capsule TAKE 1 CAPSULE BY MOUTH TWICE A DAY 01/07/2025 active aspirin EC tablet 324 mg 01/02/2025 active cyclobenzaprine (FLEXERIL) 5 mg tablet take 1 tablet by mouth twice a day as needed for 30 days 10/28/2024 active tamsulosin (FLOMAX) 0.4 MG capsule Take 0.4 mg by mouth daily. 09/18/2024 active albuterol HFA (ProAir HFA) 90 mcg/actuation inhaler Inhale 2 puffs by mouth every 4 (four) hours if needed for wheezing or shortness of breath. 07/28/2024 active diltiazem (CARDIZEM LA) 240 MG 24 hr tablet Take 240 mg by mouth daily. 04/09/2024 active phenytoin (DILANTIN) 100 mg ER capsule TAKE 2 CAPSULES BY MOUTH TWICE A DAY 02/18/2024 active primidone (MYSOLINE) 250 mg tablet TAKE 1 TABLET BY MOUTH EVERYDAY AT BEDTIME 02/18/2024 active primidone (MYSOLINE) 250 MG tablet Take 1 tablet by mouth nightly. 02/18/2024 active clonazePAM (KlonoPIN) 0.5 mg tablet Take 2 Tablets by mouth at bedtime as needed. 06/04/2023 active clonazePAM (KlonoPIN) 0.5 MG tablet Take 0.5 mg by mouth 2 times a day. active phenytoin (DILANTIN) 100 MG ER capsule Take 200 mg by mouth 2 times a day. active tadalafiL (CIALIS) 2.5 mg tablet Take by mouth 1 (one) time each day. active tadalafil (CIALIS) 5 mg tablet Take 5 mg by mouth. active tamsulosin (FLOMAX) 0.4 mg 24 hr capsule Take 1 capsule (0.4 mg total) by mouth 1 (one) time each day with breakfast. Capsules should be taken 30 minutes following the same meal each day. active Allergies Allergen Reaction Severity Comment Documented Date Source Statu s TENS THERAPY REPLACE BACK PADS UNKNOWN/PATIENT AND FAMILY UNABLE TO DEFINE 10/02/2024 [facility] active ADHESIVE TAPE-SILICONES ITCHING Other reaction(s): Rash EKG leads 05/17/2023 [facility] active SERTRALINE PALPITATIONS 10/19/2022 [facility] act bora LATEX 12/01/2021 [facility] active Problems Problem Status Onset Date Problem Type Date of Resolution Source Prostate cancer ([facility] V24, [facility] V28) active 2024-01-04 ProblemAct [facility] Atrial tachycardia ([facility] V24) active 2022-10-19 ProblemAct [facility] Primary insomnia active 2018-06-04 ProblemAct C [facility] Severe obesity (BMI 35.0-39.9) with comorbidity ([facility] V24, [facility] V28) active 2005-11-19 ProblemAct [facility] Dilatation of thoracic aorta ([facility] V24) active 2021-12-23 ProblemAct [facility] Anxiety and depression active 2022-08-21 ProblemAct [facility] Atrial fibrillation ([facility] V24, [facility] V28) active 2005-11-19 ProblemAct [facility] Palpitation active 2022-10-19 ProblemAct [facility] Hyperlipidemia active 2016-02-02 ProblemAct [facility] Generalized convulsive epilepsy without intractable epilepsy ([facility] V24, [facility] V28) active 2005-11-19 ProblemAct [facility] Chronic pansinusitis active EncounterDiagnosisA ct [facility] Immunizations Vaccine Date Source Lot Number Status Influenza trivalent, 0.5mL ( Fluad) 65yo and older 05/29/2024 [facility] [id number] completed Influenza Quadravalent, MDCK , 0.5ml, with preservative (Flucelvax) 6mo and older 07/23/2023 [facility] [id number] completed Influenza Quadravalent, MDCK , 0.5ml, with preservative (Flucelvax) 6mo and older 07/23/2022 [facility] [id number] completed Pfizer (ages 12 & older) Bivalent, COVID-19 07/23/2022 [facility] [id number] completed Moderna SARS-CoV-2 COVID-19, mRNA, LNP-S, preservative free 01/27/2022 [facility] [id number] completed Moderna SARS-CoV-2 COVID-19, mRNA, LNP-S, preservative free 08/07/2021 [facility] [id number] completed Influenza trivalent, with pr eservative (Fluzone; Afluria) 6mo and older 06/21/2021 [facility] [id number] completed Moderna SARS-CoV-2 COVID-19, mRNA, LNP-S, preservative free 12/21/2020 [facility] [id number] completed Moderna SARS-CoV-2 COVID-19, mRNA, LNP-S, preservative free 11/19/2020 [facility] [id number] completed Influenza Quadravalent, MDCK , 0.5ml, preservative free (Flucelvax) 6mo and older 06/23/2020 [facility] [id number] 40 completed Td Tetanus diptheria (Tdvax) 7yo and older 11/04/2019 [facility] [id number] completed Influenza, Unspecified 07/10/2019 [facility] co mpleted Influenza trivalent, 0.5mL, preservative free (Fluarix; FluLaval; Fluzone) ages 6mo and older (Afluria) 3 years and older 06/10/2019 [facility] completed Influenza Quadravalent, MDCK , 0.5ml, preservative free (Flucelvax) 6mo and older 06/04/2018 [facility] 2526 56 completed Influenza trivalent, 0.5mL, preservative free (Fluarix; FluLaval; Fluzone) ages 6mo and older (Afluria) 3 years and older 06/17/2017 [facility] [id number] completed Influenza, Unspecified 06/17/2017 [facility] co mpleted H1N1 Inj Preservative Free 06/18/2016 [facility] completed Influenza trivalent, 0.5mL, preservative free (Fluarix; FluLaval; Fluzone) ages 6mo and older (Afluria) 3 years and older 06/18/2016 [facility] 483949 completed Influenza trivalent, 0.5mL, preservative free (Fluarix; FluLaval; Fluzone) ages 6mo and older (Afluria) 3 years and older 07/15/2015 [facility] [id number] completed Influenza, Unspecified 07/15/2015 [facility] co mpleted Influenza trivalent, 0.5mL, preservative free (Fluarix; FluLaval; Fluzone) ages 6mo and older (Afluria) 3 years and older 06/12/2014 [facility] [id number] completed Influenza trivalent, 0.5mL, preservative free (Fluarix; FluLaval; Fluzone) ages 6mo and older (Afluria) 3 years and older 06/11/2013 [facility] [id number] completed Tdap Tetanus diptheria acell ular pertussis (Boostrix; Adacel) 7yo and older 07/20/2010 [facility] [id number] completed TD, Adsorbed, Preservative Free 06/05/2000 [facility] completed Encounters Encounter Type Encounter Reason Primary Diagnosis Location Date Ambulatory [facility] 10/02/2024 Care Team Organization Name Specialty Phone Email Start Date End Da te [facility] ACO 04/29/2025 [facility] 11/19/2024 11/26/2024 [facility]
== END 2025-07-13 11:33 | disposition home or self-care (01) ==
LOC: HO.LAB 11:32
PROVIDERS: PCP Physician Assistant Medical; Visit Provider Registered Nurse
DX: G25.3 Myoclonus (principal); Z13.29 Encounter for screening for other suspected endocrine disorder
CPT/HCPCS: 36415; 80048; 80185; 83735; 84443

== ENCOUNTER 2025-07-14 13:28 | Outpatient (AMB) | payer MEDICARE, SELFPAY ==
--- OUTSIDE RECORDS SUMMARY | 2024-02-20 09:15 | XMS_ITS ---
Author Organization [facility] Address [address] [facility] [address] [place] [address] Care Team Providers Care Boiler Tenders Supervisor Name Role Phone Hilton Tovar Unavailable [phone] Luis Beach Unavailable Unavailable Vital Signs Blood pressure systolic 120 mm Hg 02/20/20 24 Blood pressure diastolic 78 mm Hg 024 Heart Rate 68 /min 02/20/2024 Height 69 in 02/20/2024 Weight 228 lbs 02/20/2024 BMI 33.67 kg/m2 02/20/2024 BMI Percentile 33.67 % 02/20/2024 Height-cm 175.26 cm 02/20/2024 Weight-kg 103.42 kg 02/20/2024 Encounters Encounter Location Date Provider Diagnosis [facility] [address] [facility] [address] [place] [address] 02/20/2024 Hilton Tovar Plan Of Treatment No Information History and Physical Notes * HPI (History of Present Illness) Category Sub-Category Detail Notes Category Not es Migrated HPI history of present illness:: Services for this visit were rendered via telehealth. Verbal consent was obtained from the patient to render these services. Alternatives to telemedicine, including an in office visit, were offered. The patient chose to proceed with telehealth care for this visit. Over 25 minutes have been spent in chart preparation, review, and discussion. 63 year old male from [place], [place] with hx of Seizures, Afib and flutter s/p WMM 11/2021 and afib/flutter ablation in [place] (03/2023) and s/p redo PVI ablation 06/15/2023. Televisit today to discuss prostate cancer medications. At this time the patient states he is feeling the best he has felt in some time. He denies any palpitations or afib episodes at this time. Currently he is lifting weights 3 times a week and walking on the treadmill 45 min-an hour daily with no issues. Patient is wanting to discuss with Dr. Tovar the options he has been given for prostate cancer. He is very apprehensive about starting chemo and or hormone therapy after doing research on these treatments, he does not want the afib to come back or become chronic. Patient is taking Cardizem 240mg QD. No recent hospital visits. Patient denies chest pain, SOB, dizziness, palpitations, syncopal episodes, falls, and edema. Medication list reviewed with patient. , HPI service level E&M:: extended (4 or more elements) Progress Notes * Anthony CLEANINGDOB: 1960 (65 yo M)Acc No.[id number]:02/20/2024 Patient: Jay chapiskaileemacario Anthony Casanova Provider: Austin Tovar MD :1960 A ge:63 Y S ex:Male Date:02/20/2024 Address:[address] [place], [place] [id number] Subjective: * Chief Complaints: * HPI: M igrated HPI: history of present illness:: Services for this visit were rendered via telehealth. Verbal consent was obtained from the patient to render these services. Alternatives to telemedicine, including an in office visit, were offered. The patient chose to proceed with telehealth care for this visit. Over 25 minutes have been spent in chart preparation, review, and discussion. 63 year old male from [place], [place] with hx of Seizures, Afib and flutter s/p WMM 11/2021 and afib/flutter ablation in [place] (03/2023) and s/p redo PVI ablation 06/15/2023. Televisit today to discuss prostate cancer medications. At this time the patient states he is feeling the best he has felt in some time. He denies any palpitations or afib episodes at this time. Currently he is lifting weights 3 times a week and walking on the treadmill 45 min-an hour daily with no issues. Patient is wanting to discuss with Dr. Tovar the options he has been given for prostate cancer. He is very apprehensive about starting chemo and or hormone therapy after doing research on these treatments, he does not want the afib to come back or become chronic. Patient is taking Cardizem 240mg QD. No recent hospital visits. Patient denies chest pain, SOB, dizziness, palpitations, syncopal episodes, falls, and edema. Medication list reviewed with patient. , HPI service level E&M:: extended (4 or more elements). * ROS: R OS cardiovascular E&M:: Reviewed , ROS gastrointestinal E&M:: Reviewed , ROS general E&M:: Reviewed , ROS hematologic/lymphatic E&M:: Reviewed , ROS neurological E&M:: Reviewed. Objective: * Vitals: H t: 69 in, Wt: 228 lbs, HR: 68 /min, BP: 120/78 mm Hg, BMI: 33.67 Index, BMI %: 33.67 %, Wt-k.42 kg, Ht-cm: 175.26 cm. * Electronic signature of Hilton Tovar on 07/14/2025 at 03:28 PM FORMING MACHINE TENDER Sign off status: Pending * Provider: Austin Tovar MD Date: 0 02/20/2024 Generated for Adalid mackey/Chicho/Tomasz on: 1 09/13/2024 03:28 PM FORMING MACHINE TENDER
--- OUTSIDE RECORDS SUMMARY | 2025-01-31 04:00 | XMS_ITS ---
Author Organization [facility] Address [address] [facility] [address] [place] [address] Care Team Providers Care Training Generalist Name Role Phone Hilton Tovar Unavailable [phone] Luis Beach Unavailable Unavailable Migration, Provider Unavailable Unavailable REASON FOR VISIT EMR-[facility] Encounters Encounter Location Date Provider Diagnosis Migrated_Facility 0 0 01/31/2025 Provider Migration Plan Of Treatment Medication Medication Name Sig Start Date Stop Date Notes Protonix 40 MG Tablet Delayed Release 1 tablet by mouth twice a day Oral 12/05/2023 Amiodarone HCl 200 MG Tablet Take 1/2 tablet by mouth once a day as directed Oral 02/20/2024 Ranolazine ER 500 MG Tablet Extended Release 12 Hour Take 1 tablet by mouth twice a day TAKE 1 TABLET BY MOUTH TWICE DAILY Oral 06/01/2023 06/05/2023 Lanoxin 250 MCG Tablet Take 1 tablet by mouth once a day TAKE 1 TABLET ONCE DAILY Oral 06/06/2023 06/19/2023 Cardizem LA 240 MG Tablet Extended Release 24 Hour 1 tablet by mouth twice a day 1 tab daily Oral Eliquis 5 MG Tablet Take 1 tablet by mouth twice a day Oral 12/05/2023 Carafate 1 GM Tablet Take 1 tablet by mouth three times a day start taking after procedure. Oral 07/03/2023 Flecainide Acetate 150 MG Tablet take 1 tab BID Oral 05/02/2023 Colcrys 0.6 mg tablet 1 tablet by mouth once a day as needed for pain 07/03/2023 *Reorder from [facility] an for eRx and Interaction Alerts* clonazePAM 0.5 MG Tablet Take 1 tablet by mouth once a day Oral Progress Notes * Anthony CLEANINGB: 1960 (65 yo M)Acc No.[id number]:01/31/2025 Patient: Anthony SEQUEIRA :1960 A ge:64 Y S ex:Male Address:[address] [place] [address], [facility] * Refills Stop Amiodarone HCl Tablet, 200 MG, Oral, Take 1 tablet by mouth twice a day as directed Stop Lanoxin Tablet, 250 MCG, Oral Stop Cardizem LA Tablet Extended Release 24 Hour, 240 MG, Oral, 1 tablet by mouth twice a day 1 tab daily Stop Carafate Tablet, 1 GM, Oral, Take 1 tablet by mouth three times a day start taking after procedure. Stop clonazePAM Tablet, 0.5 MG, Oral, Take 1 tablet by mouth once a day Stop Ranolazine ER Tablet Extended Release 12 Hour, 500 MG, Oral, Take 1 tablet by mouth twice a day TAKE 1 TABLET BY MOUTH TWICE DAILY Stop Amiodarone HCl Tablet, 200 MG, Oral, Take 1/2 tablet by mouth once a day as directed Stop Lanoxin Tablet, 250 MCG, Oral, Take 1 tablet by mouth once a day TAKE 1 TABLET ONCE DAILY Stop Protonix Tablet Delayed Release, 40 MG, Oral, 1 tablet by mouth twice a day Stop Carafate Tablet, 1 GM, Oral, Take 1 tablet by mouth three times a day start taking after procedure. Stop Ranolazine ER Tablet Extended Release 12 Hour, 500 MG, Oral, Take 1 tablet by mouth twice a day TAKE 1 TABLET BY MOUTH TWICE DAILY Stop Flecainide Acetate Tablet, 150 MG, Oral, take 1 tab BID Stop Lanoxin Tablet, 250 MCG, Oral, Take 1 tablet by mouth once a day TAKE 1 TABLET ONCE DAILY Stop Flecainide Acetate Tablet, 150 MG, Oral, take 1 tab BID Stop Colcrys 0.6 mg tablet, 1 tablet by mouth once a day as needed for pain Stop Eliquis Tablet, 5 MG, Oral, Take 1 tablet by mouth twice a day Stop Protonix Tablet Delayed Release, 40 MG, Oral, 1 tablet by mouth twice a day Stop Colcrys 0.6 mg tablet, 1 tablet by mouth once a day as needed for pain Stop Eliquis Tablet, 5 MG, Oral, Take 1 tablet by mouth twice a day Subjective: * Chief Complaints: * E MR-[facility] * * Date:
--- OUTSIDE RECORDS SUMMARY | 2025-02-01 04:00 | XMS_ITS ---
Author Organization [facility] Address [address] [facility] [address] [place] [address] Care Team Providers Care Hydrotreater Operator Name Role Phone Hilton Tovar Unavailable [phone] Luis Beach Unavailable Unavailable Migration, Provider Unavailable Unavailable Allergies No Known Allergies REASON FOR VISIT [facility] [place] [place] Medications Medication SIG (Take, Route, Frequency, Duration) [...] use : no , social history : [employer] Encounters Encounter Location Date Provider Diagnosis Migrated_Facility 0 0 02/01/2025 Provider Migration Plan Of Treatment No Information Progress Notes * Anthony CLEANINGDOB: 1960 (65 yo M)Acc No.[id number]:02/01/2025 Patient: Anthony SEQUEIRA :1960 A ge:64 Y S ex:Male Address:[address] [place] [address], [address] Subjective: * Chief Complaints: * E MR-Walter * Medical History: Current Problems: Prostate cancer (ICD-185) (EJQ77-D03) Body mass index (BMI) 33.0-33.9, adult (ICD-V85.33) (GYS20-Y81.33) Long-term (current) use of anticoagulants (ICD-V58.61) (IBZ66-Q76.01) Fall risk (ICD-V15.88) (LNZ38-L76.81) S/P PVI ABLATION, 06/15/2023 (ICD-V58.89) (FCV99-C81.89) PVI, CTI ablation (03/19/23) (ICD-V15.1) (NMD45-H08.890) Cardioversion by Dr. De Guzman (ICD-V15.1) (GOS12-M51.11xA) Body mass index (BMI) 35.0-35.9, adult (ICD-V85.35) (QEQ73-N92.35) Overweight (ICD-278.02) (LRL87-E80.3) Typical atrial flutter (ICD-427.32) (LZJ04-H26.3) Atrial fibrillation (ICD-427.31) (WEG17-S03.91) KIRK MAZE ( Dr. Beach) 11/11/2021 (ICD-V45.89) (PHY71-B47.890) High risk meds rat exterminator use (ICD-V58.6) (GYQ96-U45.899) PAC (ICD-427.61) (EFC61-T44.1) Seizure disorder HX (ICD-780.39) (MPA81-P44.9) Pvc's (ICD-427.69) (CDX01-R87.3) Palpitations (ICD-785.1) (QCK82-V42.2) Abnormal electrocardiogram (ICD-794.31) (EFT94-C33.31) * Surgical History: s/p Mini Maze 11/2022 [...] use : no , social history : [employer]. * Medications: T akingPrimidone 250 MG Tablet [...]
--- OUTSIDE RECORDS SUMMARY | 2025-05-07 05:30 | XMS_ITS ---
Author Organization [facility] [place] Address [address] [place] [address] Care Team Providers Care Student Development Advisor Name Role Phone Anthony Machado Primary Care Provider Unav ailable Black, Roxy Unavailable [phone] Allergies Allergen (clinical drug ingredient) Drug/Non Drug [...] 05/07/2025 Encounters Encounter Location Date Provider Diagnosis [facility] [address] [place] [address] 05/07/2025 Roxy Clifford Plan Of Treatment No Information Progress Notes * Anthony CLEANING JDOB:[birth year] (65 yo M)Acc No.[id number]:05/07/2025 Progress Notes Patient: Anthony SEQUEIRA Provider: Satinder Horton DPM :1960 A ge:65 Y S ex:Male Date:05/07/2025 Address:[address] [place] [address] [place] [id number] Pcp:ELDA Esquivel Subjective: * Chief Complaints: * [...] enies. C ardiovascular: Pacemaker d enies. M HOTEL SERVICES SUPERVISOR d enies. W PW d enies. C [...] weights, walking, hiking. Marital status: . Occupation: [employer]. D rug/Alcohol: A MARIANA-C (Standard) D id [...] 0 05/07/2025 Generated for Adalid mackey/Chicho/Tomasz on: 09/13/2024 04:29 PM EST
--- NOTE | 2025-07-14 13:29 | MHC.OFFVIS ---
Intake Visit Reasons: Follow up, Body twitching Allergies No Known Allergies Allergy (Verified 07/14/25 14:03) Medication List - Last Reconciled 07/14/25 by Megan Dukes CNP clonazepam (Klonopin) 1 mg (2 x 0.5 mg) PO BEDTIME 30 days cyclobenzaprine 5 mg PO BID PRN diltiazem HCl 30 mg PO QID PRN diltiazem HCl ER (Tiadylt ER) 240 mg PO BID naproxen 500 mg PO BID phenytoin sodium extended mg PO QID phenytoin sodium extended 200 mg PO BID primidone 250 mg PO BEDTIME sotalol (Sotalol AF) 120 mg PO BID tadalafil 5 mg PO DAILY tamsulosin 0.4 mg PO DAILY tiotropium bromide (Spiriva with HandiHaler) 1 cap PO DAILY HPI Comments Details: Had episode last week of muscles twitching in upper body, arms and torso, for 3 days. No specific trigger identified. He tried clonazepam at bedtime as needed which may have helped some. He was taking clonazepam 0.5mg 1 tablet in the morning and 1 tablet at bedtime instead of taking both at bedtime which he thinks may be helping some, although twitches have resolved. No further episodes. He has some stress and anxiety related to health from history of prostate cancer which he is working on with therapist. He is going to gym almost every day. He denies any new or strenuous activity. Sleep was generally okay. Tremors have been okay. No functional impairment. No difficulty eating, drinking, or swallowing. He was still having some left sided neck pain and left sided headaches. Headaches happened almost every day and were relieved by [facility] brand only migraine relief. He took 2 tablets every day. He did not try amitriptyline that was prescribed in the past after reading about medication and was not interested in trying medication at this time. Completed RT for prostate cancer 09/26/2024. Had episode of twitching all over, especially to left torso area in mid-10/2024. It was not painful, but was very bothersome and disrupted sleep. No seizures in many years. He had 9 months of left-sided daily headaches temporarily relieved by Excedrin. Tremors mostly in hands and occasionally in legs, act up at times. Self-conscious about eating in front of others, but no significant impairment in ability to eat or drink. Cardioversion in [place], [place] on 06/08/2023 and cardiac ablation 09/15/2022. Hx of Atrial appendage resection and MACE procedure for atrial fib. Had atrial flutter in 02/2023 and had catheter ablation for Atrial fib and flutter on 03/19/2023. Went back into Aflutter on 04/22/23, had another cardioversion on 05/02/23. Was in NSR for 4hr, went back to Aflutter 2hr, then back to NSR on own until 05/27/23 at which point was determined to be in persistent Afib. Previously had problems with paroxysmal atrial fibrillation, first diagnosed in 2003. Had a minimaze ablation in [facility] and had some complications with bilateral pleural effusion and atelectasis in 11/2021. History of epilepsy in his teenage years and diagnosed in 1972. He has had no seizure recurrence for the last 40+ years. He continues to take phenytoin 200 mg twice a day and primidone 250 mg one a day and usually runs low drug levels. He has not had any seizures for which were major generalized tonic-clonic seizures. Had pain that started in the left occipital region and goes to the left side of the scalp as well has fairly severe pain intermittently in the left ear and the left tragus, can last for 5 hours at a time and was occurring every 2-4 weeks up to 2x/week. MRI brain normal. [facility] Medical History (Updated 07/14/25 @ 15:44 by Megan Dukes CNP) Paroxysmal A-fib Epilepsy Review of Systems Const Denies chills, Denies daytime sleepiness, Reports difficulty sleeping, Denies fatigue, Denies fever(s), Denies frequent falls, Reports headache(s), Denies increased appetite, Denies poor appetite, Denies snoring, Denies weakness, Denies weight gain and Denies weight loss Eyes Denies loss of vision ENT Denies vertigo, Denies dizziness, Reports headache(s) and Reports neck pain Card Denies chest pain at rest, Denies chest pain with activity, Denies syncope, Denies leg edema, Denies palpitations, Denies dyspnea and Denies dyspnea on exertion Resp Denies cough, Denies dyspnea, Denies dyspnea on exertion and Denies snoring GI Denies abdominal pain, Denies constipation, Denies heartburn, Denies diarrhea and Denies nausea Denies urinary frequency, Denies urinary incontinence and Denies urinary urgency Musc Denies abnormal gait, Reports back pain, Reports myalgias, Reports arthralgias, Reports neck pain, Denies numbness and Denies tingling Neuro Denies abnormal gait, Denies vertigo, Denies dizziness, Denies syncope, Denies frequent falls, Reports headache(s), Denies lack of coordination, Denies loss of vision, Denies memory loss, Denies numbness, Denies Other visual disturbances, Denies restless legs, Denies seizure-like activity, Denies tingling, Denies paresthesias, Reports tremor(s) and Denies weakness Psych Denies anxiety, Denies depression, Denies auditory hallucinations, Denies memory loss and Denies visual hallucinations Endo Denies fatigue and Denies palpitations Physical Exam Const Other: General Appearance:? normal, in no acute distress. Heart:? S1, S2 normal, no murmurs. Lungs:? clear anteriorly and posteriorly. Musculoskeletal:? normal. Extremities:? no edema. Psych:? alert, oriented, cognitive function intact, cooperative with exam. Neuro Other: Abnormal Neurological Findings:?Very mild tremor in hands on sustained posture. No intermittent tremor in legs noted today. No muscle spasms or twitches noted today. Mental Status: alert and oriented X 3. Normal attention, orientation, memory, and affect. Cranial Nerves: Pupils are equal, round, and reactive to light. External ocular muscles are intact. Visual maher are full, no ptosis. Face is symmetrical, no facial weakness or droop. Facial sensations are normal. Tongue protrudes in midline. Palate elevates symmetrically. Shoulder shrugging is normal Motor Examination: As above. Sensory Exam: Normal light touch, temperature, pinprick, vibration, and joint-position sensations. Rhomberg sign is absent. Coordination: No ataxia. No titubation. Gait Exam: Within normal limits. Cerebellar Signs: Qpfwoc-oy-areb is okay. Extrapyramidal System: Tremor as above. No rigidity with normal facial expressions. No bradykinesia. No bradyphrenia. Normal arm swing and posture. No propulsion or retropulsion. Speech: Normal. Results Reviewed Results Reviewed: Laboratory Tests 07/13/25 11:58 Sodium 141 Potassium 4.6 Chloride 108 Carbon Dioxide 28 Anion Gap 10 L BUN 18 H Creatinine 0.80 Estimated GFR > 60 Random Glucose 96 Calcium 8.6 Magnesium 2.0 TSH 0.77 Phenytoin 10.3 EEG Awake and drowsy 07/15/20: WNL MRI brain 07/09/20: normal. C Spine XR 10/02/2022: Mild degenerative disc disease. Assessment & Plan Assessment & Plan (1) Tremor: Code(s): R25.1 - Tremor, unspecified Category: Medical Plan: Continue clonazepam 0.5mg 1 tablet twice a day #60 for 30 days. Continue primidone 250mg 1 tablet daily. (2) Tension headache: Code(s): G44.209 - Tension-type headache, unspecified, not intractable Category: Medical Plan: He was not interested in trying amitriptyline or other medication at this time. (3) Myoclonus: Code(s): G25.3 - Myoclonus Category: Medical Plan: Lab results reviewed and were okay. Continue cyclobenzaprine 5mg 1 tablet twice a day as needed for muscle spasms. (4) Cervical spondylosis: Code(s): M47.812 - Spondylosis without myelopathy or radiculopathy, cervical region Category: Medical Plan: Option for PT discussed, declining at this time. (5) Migraine: Code(s): G43.909 - Migraine, unspecified, not intractable, without status migrainosus Category: Medical Qualifiers: Intractability: not intractable Migraine type: unspecified Status migrainosus presence: without status migrainosus Qualified Code(s): G43.909 - Migraine, unspecified, not intractable, without status migrainosus Plan: MRI brain ordered. (6) Medication overuse headache: Code(s): G44.40 - Drug-induced headache, not elsewhere classified, not intractable Category: Medical Plan: He was taking OTC migraine relief 2 tablets/day every day for months. This could be contributing to frequent headaches. He was educated on this concept. Orders: Orders MR head/brain wo con Today G43.909 - Migraine, unspecified, not intractable, without status migrainosus Coding Level of Care Code Est Pt Level 4 (24893) Diagnoses Tremor R25.1 Tension headache G44.209 Myoclonus G25.3 Cervical spondylosis M47.812 Migraine without status migrainosus, not intractable, unspecified migraine type G43.909 Intractability: not intractable Migraine type: unspecified Status migrainosus presence: without status migrainosus Medication overuse headache G44.40
--- OUTSIDE RECORDS SUMMARY | 2025-07-14 16:28 | XMS_ITS | Encounter Summary ---
Author Organization [facility] Address [address] [place] [address] [place] [address] Phone Care Team Providers Care Leaf Binner Name Role Phone FelisakeshavAlton Primary Care Provid er Alexsander Mckeon MD, MPH Unavailable [phone] Vickie Anne DO Unavailable [phone] Asa Morales MD Unavailable [phone] Alona Barlow RN Unavailable [email or web address] Mick Baer [facility] Unavailable [phone] Encounter Details Date Type Department Care Team (Late st Contact Info) Description 10/03/2023 Telephone DEPARTMENT OF UROLOGY [address] [facility], [address] [place] [address] Alton Chaney MD [address] [place] [address] [email or web address] Social History Tobacco Use Types Packs/Day Years [...] EST Appointment Department of Radiation Oncology [address] [place] [address] Tessa Castano PA-C [address] [place] [phone] [email or web address] documented as of this encounter Visit Diagnoses Not on filedocumented in this encounter Care Teams Leaf Binner Relationship Specialty Start Date End Date Alton Marin PA [address] [place] [address] PCP - General Physician Mental Health Associate 07/09/23 Alexsander Mckeon MD, MPH [address] [place] [address] [address] [place] [address] [email or web address] 12/11/23 Vickie Anne DO [address] [place] [address] [place] [address] [email or web address] 12/11/23 Asa Morales MD [address] [place] [address] [email or web address] Radiation Oncology 12/11/23 Alona Barlow, RN [address] [place] [phone] [email or web address] Registered Nurse Oncology 05/20/24 Mick Baer, [address] [address] [email or web address] Aerial Hurricane Hunter 08/21/24 documented as of this encounter Additional Source Comments The information contained in this document represents components of the legal health record. It is not the complete legal health record.[facility]
--- OUTSIDE RECORDS SUMMARY | 2025-07-14 16:28 | XMS_ITS | Encounter Summary ---
Author Organization [facility] Address [address] [place] [address] [place] [address] Phone Care Team Providers Care Air Conditioning Engineer Name Role Phone FelisakeshavAlton Primary Care Provid er Alexsander Mckeon MD, MPH Unavailable [phone] Vickie Anne DO Unavailable [phone] Asa Morales MD Unavailable [phone] Alona Barlow RN Unavailable [email or web address] Mick Baer [facility] Unavailable [phone] Encounter Details Date Type Department Care Team (Late st Contact Info) Description 10/01/2023 Telephone DEPARTMENT OF UROLOGY [address] [facility], [address] [place] [address] Alton Chaney MD [address] [place] [address] [email or web address] Social History Tobacco Use Types Packs/Day Years [...] AM EST Appointment Department of Radiation Oncology [address] [place] [address] Tessa Castano PA-C [address] [place] [address] [email or web address] documented as of this encounter Visit Diagnoses Not on filedocumented in this encounter Care Teams Air Conditioning Engineer Relationship Specialty Start Date End Date Alton Marin PA [address] [place] [address] PCP - General Physician Quality Assurance/R&D Lab Technician 07/09/23 Alexsander Mckeon MD, MPH [address] [place] [address] [address] [place] [address] [email or web address] Urology 12/11/23 Vickie Anne DO [address] [place] [address] [place] [address] [email or web address] Medical Oncology 12/11/23 Asa Morales MD [address] [place] [address] [email or web address] Radiation Oncology 12/11/23 Alona Barlow, RN [address] [place] [address] [email or web address] Registered Nurse Oncology 05/20/24 Mick Baer, [address] [address] [email or web address] Ledge Man 08/21/24 documented as of this encounter Additional Source Comments The information contained in this document represents components of the legal health record. It is not the complete legal health record.[facility]
--- OUTSIDE RECORDS SUMMARY | 2025-07-14 16:29 | XMS_ITS | Encounter Summary ---
Author Organization [facility] Address [address] [place] [address] [place] [address] Phone Care Team Providers Care Funeral Workers Name Role Phone FelisakeshavAlton Primary Care Provid er Alexsander Mckeon MD, MPH Unavailable [phone] Vickie Anne DO Unavailable [phone] Asa Morales MD Unavailable [phone] Alona Barlow RN Unavailable [email or web address] Mick Baer [facility] Unavailable [phone] Encounter Details Date Type Department Care Team (Late st Contact Info) Description 09/05/2023 Telephone DEPARTMENT OF UROLOGY [address] [facility], [address] [place] [address] Alton Chaney MD [address] [place] [address] [email or web address] Social History Tobacco Use Types Packs/Day Years [...] AM EST Appointment Department of Radiation Oncology [address] [place] [address] Tessa Castano PA-C [address] [place] [address] [email or web address] documented as of this encounter Visit Diagnoses Not on filedocumented in this encounter Care Teams Funeral Workers Relationship Specialty Start Date End Date Alton Marin PA [address] [place] [address] PCP - General Physician Dowel Pointer 07/09/23 Alexsander Mckeon MD, MPH [address] [place] [address] [address] [place] [address] [email or web address] Urology 12/11/23 Vickie Anne DO [address] [place] [address] [place] [address] [email or web address] Medical Oncology 12/11/23 Asa Morales MD [address] [place] [address] [email or web address] ER Radiation Oncology 12/11/23 Alona Barlow, RN [address] [place] [address] [email or web address] Registered Nurse Oncology 05/20/24 Mick Baer, [address] [address] [email or web address] Tufter Hand 08/21/24 documented as of this encounter Additional Source Comments The information contained in this document represents components of the legal health record. It is not the complete legal health record.[facility]
--- OUTSIDE RECORDS SUMMARY | 2025-07-14 16:29 | XMS_ITS | Encounter Summary ---
Author Organization [facility] Address [address] [facility] [address] [place] [address] Phone Care Team Providers Care Fire Officer Name Role Phone Felisakeshav Alton SCHROEDER Primary Care Provid er Alexsander Mckeon MD, MPH Unavailable [phone] Vickie Anne DO Unavailable [phone] Asa Morales MD Unavailable [phone] Alona Barlow RN Unavailable [email or web address] Mick Baer PHOTOGRAP[employer] INTER[employer] Unavailable [phone] Encounter Details Date Type Department Care Team (Late st Contact Info) Description 09/06/2023 Procedure Pass [facility] [place] [facility] [address] [place] [address] Social History Tobacco Use Types [...] AM EST Appointment Department of Radiation Oncology [address] [place] [address] Tessa Castano PA-C [address] [place] [address] [email or web address] documented as of this encounter Visit Diagnoses Not on filedocumented in this encounter Care Teams Fire Officer Relationship Specialty Start Date End Date Alton Marin PA [address] [place] [address] PCP - General Physician Recreation Adviser 07/09/23 Alexsander Mckeon MD, MPH [address] [place] [address] [address] [place] [address] [email or web address] Urology 12/11/23 Vickie Anne DO [address] [place] [address] [place] [address] [email or web address] Medical Oncology 12/11/23 Asa Morales MD [address] [place] [address] [email or web address] Radiation Oncology 12/11/23 Alona Barlow, RN [address] [place] [address] [email or web address] Registered Nurse Oncology 05/20/24 Mick Baer, [address] [address] [email or web address] Research And Development Chemist 08/21/24 documented as of this encounter Additional Source Comments The information contained in this document represents components of the legal health record. It is not the complete legal health record.[facility]
--- OUTSIDE RECORDS SUMMARY | 2025-07-14 16:29 | XMS_ITS | Clinical Summary ---
Author Organization [facility] Address [address] [place] [address] Care Team Providers Care Internet And E Business Project Manager Name Role Phone Anthony Marin PA-C Primary [...] topic Insurance MEDICARE PART A & B [facility] MEDICARE PART A & B AARP Care Teams Internet And E Business Project Manager Relationship Specialty Start Date End Date Anthony Marin PA-C PCP - General Internal Medicine 07/09/23
--- OUTSIDE RECORDS SUMMARY | 2025-07-14 16:29 | XMS_ITS | Clinical Summary ---
Author Organization [facility] Address [address] [place] [address] Care Team Providers Care Financial Analyst Accountant Name Role Phone Anthony Marin Primary Care Provider [phone] Allergies Active Allergy Reactions Criticality Noted Date [...] Screening 09/10/2024 Depression Screening and Follow-Up 09/10/2024 Fall Risk Screening 09/10/2024 Health Care Proxy Review 09/10/2024 Social Drivers of Health Annual Screening 09/10/2024 COVID-19 Vaccine ( - 2024- season) 2025 07/23/2022, 01/27/2022, 08/07/2021, Additional history exists Influenza Vaccine (#1) 2025 , 06/21/2021, 06/23/2020, Additional history exists DTaP,Tdap,and Td Vaccines (3 - Td or Tdap) 11/04/2029 11/04/2019, 07/20/2010, 06/05/2000 RSV Vaccine (60+ years old and patients) (1 - 1-dose 75+ series) 2033 Hepatitis B Vaccines Aged Out No long er eligible based on patient's age to complete this topic Insurance MEDICARE [facility] Care Teams Financial Analyst Accountant Relationship Specialty Start Date End Date Anthony Marin PCP - General Internal Medicine 02/16/23
--- OUTSIDE RECORDS SUMMARY | 2025-07-14 16:29 | XMS_ITS | Clinical Summary ---
Author Organization [address] [place] [address] Address [address] [place] [address] Phone Care Team Providers Care Fabric Lay Out Worker Name Role Phone Anthony Marin Primary Care Provider [phone] Allergies Active Allergy Reactions Criticality Noted Date [...] (MYSOLINE) 250 mg tabletIndications :Paroxysmal atrial fibrillation ([facility] V24, [facility] V28) TAKE 1 TABLET BY MOUTH EVERYDAY AT BEDTIME 90 tablet 3 5 Active phenytoin (DILANTIN) 100 mg ER capsuleIndication s:Paroxysmal atrial fibrillation ([facility] V24, [facility] V28),Acute upper respiratory infection, unspecified TAKE 2 CAPSULES BY MOUTH TWICE A DAY 360 capsule 3 5 Active Hospital, Clinic, or Other Facility Administered Medication Ordered Dose Route Frequency Start Date End Date Status aspirin EC tablet 324 mgIndications:Acute coronary syndrome ([facility] V24, [facility] V28) 324 mg oral Once 01/02/2025 Active Active Problems Problem Noted Date Diagnosed Date Prostate cancer ([facility] V24, [facility] V28) 01/03 Atrial tachycardia ([facility] V24) 10/19/2022 Palpitation 10/19/2022 Anxiety and depression 08/21/2022 Dilatation of thoracic aorta ([facility] V24) 12/23 Primary insomnia 06/04/2018 Hyperlipidemia 02/02/2016 Atrial fibrillation ([facility] V24, [facility] V28) 0 11/19/2005 Overview (08/27/2024): followeed by [...] 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 9) with comorbidity ([facility] V24, [facility] V28) 11/19/2005 Encounters Date Type Department Care Team Description 07/08/2025 Telephone Adult Medicine [address] [address] Anthony Marin PA 07/08/2025 Telephone Adult Medicine [address] [address] Anthony Marin PA 07/08/2025 Telephone Adult [address] [address] Anthony Marin, PA 07/08/2025 Telephone Adult Medicine [address] [address] Anthony Marin, PA from Last 3 Months [...] ON THE LEFT WRIST ESOPHAGOGASTRODUODENOSCOPY 2005 PROCEDURE: NV EGD TRANSORAL BIOPSY SINGLE/MULTIPLE; COMMENT: duodenal bx normal COLONOSCOPY W/ BIOPSIES 2005 PROCEDURE: NV COLONOSCOPY W/BIOPSY SINGLE/MULTIPLE; COMMENT: colonic bx normal COLONOSCOPY 2012 PROCEDURE: NV COLONOSCOPY FLX DX W/COLLJ SPEC WHEN PFRMD; [...] for your loved ones. For example, child nurse or elderly care for an older adult? [...] 9:00 AM EST Office Visit Adult Medicine [address] [address] Anthony Marin PA [address] [place] [phone] 08/12/2025 2:30 PM EST Ancillary Procedure [facility] - [facility] [address] [facility] Alessandro [address] [place] [address] Health Maintenance Due Date Last [...] Fin al Result * Lipid panel (05/14/2024) [facility] LDL/HDL Ratio 0 Comment:No Interpretation, A bstracted Triglycerides 0 mg/dL Comment:No Interpretation, A bstracted Cholesterol 0 mg/dL Comment:No Interpretation, A bstracted HDL 0 mg/dL Comment:No Interpretation, A bstracted LDL Cholesterol 0 mg/dL Comment:No Interpretation, A bstracted Blood Venous blood specimen / Unknown [facility] Provider LAB BLOOD ORDERABLES Vivian l Result * Depression Screening (01/04/2024) [facility] Depression Screening Abstracted [facility] Provider HEALTH MAINTENANCE Final Result * Colonoscopy (06/28/2023) [facility] Colonoscopy No Interpretation , Abstracted Anatomical Region Laterality Modality Other [facility] Provider HEALTH MAINTENANCE Final Result * Hepatitis C Screening (11/04/2018) [facility] Hepatitis C Screening Abstracted Result [facility] Provider HEALTH MAINTENANCE Final Result from Last 3 Months or Most Recently Relevant to Health Maintenance Insurance MEDICARE [facility] Care Teams Fabric Lay Out Worker Relationship Specialty Start Date End Date Anthony Marin PA [address] [place] [address] PCP - General Internal Medicine 01/02/25
--- OUTSIDE RECORDS SUMMARY | 2025-07-14 16:29 | XMS_ITS | Encounter Summary ---
Author Organization [facility] Address [address] [place] [address] Care Team Providers Care Investment Executive Name Role Phone Anthony Marin Primary Care Provider [phone] Encounter Details Date Type Department Care Team ([facility] st Contact Info) Description 07/08/2025 Telephone Adult Medicine [address] [phone] Anthony Marin PA [address] [place] [address] Social History Tobacco Use Types [...] for your loved ones. For example, child protective investigator or elderly care for an older adult? [...] 9:00 AM EST Office Visit Adult Medicine [address] [address] Anthony Marin PA [address] [place] [phone] 08/12/2025 2:30 PM EST Ancillary Procedure [facility] - [facility] [address] [place] [address] documented as of this encounter Visit Diagnoses Not on filedocumented in this encounter Additional Health Concerns Assessment Noted Time PHQ-9 Depression Total Score: 1 01/06/20 2:03 PM EDT A fall risk assessment has been complete d for the patient 01/05/2025 2:05 PM EDT documented as of this encounter Care Teams Investment Executive Relationship Specialty Start Date End Date Anthony Marin PA [address] [place] [address] PCP - General Internal Medicine 01/02/25 documented as of this encounter
--- OUTSIDE RECORDS SUMMARY | 2025-07-14 16:29 | XMS_ITS | Encounter Summary ---
Author Organization [facility] Address [address] [place] [address] Care Team Providers Care Fur Comber Name Role Phone Anthony Marin Primary Care Provider [phone] Encounter Details Date Type Department Care Team ([facility] st Contact Info) Description 07/08/2025 Telephone Adult Medicine [address] [phone] Anthony Marin PA [address] [place] [address] Social History Tobacco Use Types [...] care for your loved ones. For example, children's literature professor or elderly care for an older adult? [...] 9:00 AM EST Office Visit Adult Medicine [address] [address] Anthony Marin PA [address] [place] [phone] 08/12/2025 2:30 PM EST Ancillary Procedure [facility] - [facility] [address] [place] [address] documented as of this encounter Visit Diagnoses Not on filedocumented in this encounter Additional Health Concerns Assessment Noted Time PHQ-9 Depression Total Score: 1 01/06/20 2:03 PM EDT A fall risk assessment has been complete d for the patient 01/05/2025 2:05 PM EDT documented as of this encounter Care Teams Fur Comber Relationship Specialty Start Date End Date Anthony Marin PA [address] [place] [address] PCP - General Internal Medicine 01/02/25 documented as of this encounter
--- OUTSIDE RECORDS SUMMARY | 2025-07-14 16:29 | XMS_ITS ---
Author Organization [facility] Address [address] [place] [address] Phone Care Team Providers Care Client Services Vice President Name Role Phone Felisakeshav Alton SCHROEDER Primary Care Provid er Alexsander Mckeon MD, MPH Unavailable [phone] Vickie Anne DO Unavailable [phone] Asa Morales MD Unavailable [phone] Alona Barlow RN Unavailable [email or web address] Mick Baer [facility] Unavailable [phone] Active Problems Problem Noted Date Diagnosed Date Atypical atrial flutter 01/21/2024 Malignant neoplasm of prostate 11/29/2023 Cancer Staging:Clinical:Stage IIIA(cT1c, cN0, cM0, PSA: 22, Grade Group: 2) - Signed by Gracy Sorensen MD, PhD on 11/30/2023 Seizure 08/28/2023 Paroxysmal atrial fibrillation 03/31/2021 Overview (08/28/2023): Added automatically from request for surgery [id number] Current Treatment and Therapy Plans No current [...]
--- OUTSIDE RECORDS SUMMARY | 2025-07-14 16:29 | XMS_ITS | Clinical Summary ---
Author Organization [facility] Address [address] [place] [address] Phone Care Team Providers Care Sports Medicine Coordinator Name Role Phone Felisakeshav Alton SCHROEDER Primary Care Provid er Alexsander Mckeon MD, MPH Unavailable [phone] Vickie Anne DO Unavailable [phone] Asa Morales MD Unavailable [phone] Alona Barlow RN Unavailable [email or web address] Mick Baer [facility] Unavailable [phone] Allergies Active Allergy Reactions Criticality Noted Date [...] (08/28/2023): Added automatically from request for surgery [id number] Resolved Problems Problem Noted Date Diagnosed Date Resolved Date Arrhythmia 08/28/2023 08/28/2023 Encounters Date Type Department Care Team Description 07/05/2025 Refill Department of Radiation Oncology [address] [place] [address] Haseeb Muir, ANAT Medication Refill 06/24/2025 9:55 AM EDT - 06/24/2025 11:59 PM EDT Hospital Encounter Department of Radiation Oncology [address] [place] [address] Asa Morales MD Discharge Disposition: Home or Self Care 06/22/2025 10:03 AM EDT - 06/22/2025 11:59 PM EDT Hospital Encounter [facility] [address] [place] [address] Tessa Castano PA-C Discharge Disposition: Home or [...] GED, job training, learning the Citizen [place] language, technical skills, or developing parenting skills)? [...] EST Appointment Department of Radiation Oncology [address] [place] [address] Tessa Castano PA-C [address] [place] [address] [email or web address]. [facility] Health Maintenance Due Date Last Done Comments [...] this topic Medical Devices Implanted Type Area Surveyor'S Assistant Device Identifier Shelf Expiration Date Model / Serial / Lot Left [employer] App[employer] Cl[employer] System [employer] - [id number] Implanted:Qty: 1 on 08/26/2024 by Calvin Galicia MD at [facility] N/A: Prostate FlightCaster JONO [id number] 01/31/2026 [id number] / / [id number] Procedures Procedure Name Priority Date/Time Associated Diagnosis [...] Recently Relevant to Health Maintenance Results * [facility] Blood Draw (06/22/2025 10:11 AM EDT) [facility] PURPLE DRAW 1 Drawn and Received [facility] PURPLE DRAW 2 Drawn and Received [facility] BIOBANK RED DRAW 1 Drawn and Received [facility] Blood 06/22/2025 10:1 1 AM EDT 06/22/2025 10:16 AM EDT Doyle Cadena MD, PhD LAB BLOOD ORDERABLES Final Result Performing Organization Address [facility] Co de Phone Number [address] [address] * PSA diagnostic (monitoring) (06/22/2025 10:11 AM EDT) PSA 2.04 0 - 4.00 ng/mL [facility] Comment: Test Methodology Francisco e801 Patient results determined by assays using different manufacturers or methods may not be comparable. Blood 06/22/2025 10:1 1 AM EDT 06/22/2025 10:16 AM EDT Tessa Castano PA-C LAB BLOOD BKR ORDERABLES Fi nal Result Performing Organization Address [facility]/ZIP Co de Phone Number [address] [address] * (ABNORMAL) Lipid panel (05/14/2024 11:14 AM EDT) HDL 91 mg/dL [facility] Comment: Interpretation <40 mg/dL: Low HDL cholesterol (major risk factor for CHD) Greater than or equal to 60 mg/dL: High HDL cholesterol ( negative risk factor for CHD) HDL - cholesterol is affected by a number of factors, e.g. smoking, excerise, hormones, sex and age. CHOLESTEROL 232 0 - 240 mg/dL [facility] TRIGLYCERIDES 60 30 - 160 mg/dL [facility] LDL 129 50 - 129 mg/dL [facility] Comment: LDL levels in terms of risk for coronary heart disease: <100 mg/dL: Optimal 100-129 mg/dL: Near or above optimal 130-159 mg/dL: Borderline high 160-189 mg/dL: High >190 mg/dL: Very High CARDIAC RISK RATIO 2.5(L) 3.4 - 5.0 C [facility] Blood 05/14/2024 11:1 4 AM EDT 05/14/2024 11:21 AM EDT Alton SCHROEDER LAB BLOOD BKR ORDERA BLES Final Result [facility] [address] [place] [address] from Last 3 Months or Most Recently Relevant to Health Maintenance Insurance MEDICARE PART A & B Member Subscriber Plan / Payer (Ef fective 2023-Present) Name:Alton Cleaning Member ID:[id number] Relation to Subscriber:Self Name:Alton Cleaning Subscriber ID:[id number] Payer ID:[id number] Group ID:Not on file Type:Medicare Address: [facility] [employer] [facility] [address] [place] [address] [place] [address] [facility] MEDICARE SUPPLEMENT MEDICARE PART A & B MEDICARE SUPPLEMENT MEDICARE PART A & B [facility] MEDICARE SUPPLEMENT MEDICARE PART A & B MEDICARE SUPPLEMENT MEDICARE PART A & B Member Subscriber Plan / Payer ( fective 2023-) Name:Alton Cleaning Member ID:[id number] Relation to Subscriber:Self Name:Hermila Alton Subscriber ID:[id number] Payer ID:[id number] Group ID:Not on file Type:Medicare Address: [place] [address] MEDICARE SUPPLEMENT MEDICARE PART A & B [facility] MEDICARE SUPPLEMENT Care Teams Sports Medicine Coordinator Relationship Specialty Start Date End Date Alton Marin PA [address] [place] [address] PCP - General Physician Office Coordinator 07/09/23 Alexsander Mckeon MD, MPH [address] [place] [address] [address] [place] [address] [email or web address] Urology 12/11/23 Vickie Anne DO [address] [place] [address] [place] [address] [email or web address] Medical Oncology 12/11/23 Asa Morales MD [address] [place] [address] [email or web address] Radiation Oncology 12/11/23 Alona Barlow, JAMIE [address] [place] [address] [email or web address] Registered Nurse Oncology 05/20/24 Mick Baer, [address] [address] [email or web address] Conversion Developer 08/21/24 Additional Source Comments The information contained in this document represents components of the legal health record. It is not the complete legal health record.[facility]
--- OUTSIDE RECORDS SUMMARY | 2025-07-14 16:29 | XMS_ITS | Patient Health Record ---
[facility] Address [address] [place] [address] Care Team Providers Care Internet Project Manager Name Role Phone Anthony Machado Primary Care Provider Unav ailable Clifford, Roxy Unavailable [phone] Allergies Allergen (clinical drug ingredient) Drug/Non Drug [...] Negative Encounters Encounter Location Date Provider Diagnosis [facility] [address] [place] [address] 02/24/2025 Roxy Black [facility] [address] [place] [address] 05/05/2025 Roxy Horton Plan Of Treatment No Information Insurance Providers Payer Name Payer Address Payer Phone Subscriber Number Group Number Insured Name Patient Relationship to Insured Coverage Start Date Coverage End Date Medicare National [employer] [address] [place] [address] [id number] Anthony Cleaning Self - patient is the insured AARP Secondary to Medicare [address] [place] [address] [id number] Anthony Cleaning Self - patient is the insured Medical (General) History Medical History History ICD Code Arthritis (OA, RA) Back, Hip, Knee Pain Broken Bone(s) Carcer Epilepsy/Seizures Headaches/Migraines Measles Mumps A fib Chicken Pox Surgical History Surgery Date(Month/Year) bone graft 1976 cardiac ablation 11/2021 catheter ablation 03/2023, 06/2023
--- OUTSIDE RECORDS SUMMARY | 2025-07-14 16:29 | XMS_ITS | Clinical Summary ---
Author Organization [facility] Address [address] [place], [place] [id number] Care Team Providers Care Pasting Machine Offbearer Name Role Phone Felisakeshav Anthony Tellez PA-C [...] age to complete this topic Care Teams Pasting Machine Offbearer Relationship Specialty Start Date End Date Anthony Marin PA-C PCP - General Medical Services 04/24/23
--- OUTSIDE RECORDS SUMMARY | 2025-07-14 16:29 | XMS_ITS | Patient Health Record ---
Author Organization [facility] Address [address] [facility] [address] [place] [address] Care Team Providers Care Fabrication Lead Name Role Phone Hilton Tovar Unavailable [phone] Luis Beach Unavailable Unavailable Migration, Provider Unavailable [...] use : no , social history : [employer] Problems Problem Type SNOMED Code ICD Code Onset Dates Problem Status W/U Status Risk Notes Problem Malignant neoplasm of prostate (922952829) Malignant neoplasm of prostate (C61) 2023 Active confirmed Problem Overweight (568153113) Overweight (E66.3) 2022 Active confirmed Problem Typical atrial flutter (322509550) Typical atrial flutter (I48.3) 2022 Active confirmed Problem Atrial fibrillation (93081920) Unspecified atrial fibrillation (I48.91) 2022 Active confirmed Problem Atrial premature depolarization (687258323) Atrial premature depolarization (I49.1) 2022 Active confirmed Problem Ventricular premature depolarization (161618486) Ventricular premature depolarization (I49.3) 2022 Active confirmed Problem Palpitations (07373032) Palpitations (R00.2) 2022 Active confirmed Problem Seizure (88333678) Unspecified convulsions (R56.9) 2022 Active confirmed Problem Electrocardiogram abnormal (639656705) Abnormal electrocardiogram [ECG] [EKG] (R94.31) 2022 Active confirmed Problem Aftercare (501844838) Encounter for other specified aftercare (Z51.89) 2022 Active confirmed Notes::Chavarria ccessful PVI ablation ; Problem Long-term current use of anticoagulant (225595153) [facility] (current) use of anticoagulants (Z79.01) 2022 Active confirmed Problem Long-term current use of drug therapy (899062656) Other computer terminal operator (current) drug therapy (Z79.899) 2022 Active confirmed Problem History of fall (105306668) History of falling (Z91.81) 2022 Active confirmed Problem Postprocedural states (871732597) Other specified postprocedural states (Z98.890) Active confirmed Notes::by Dr. De Guzman; Problem Body mass index 30.00 to 34.99 (830663830485268) Body mass index (BMI) 33.0-33.9, adult (Z68.33) 2023 Active confirmed Problem Obese class II (203524126577176) Body mass index (BMI) 35.0-35.9, adult (Z68.35) 2022 Active confirmed Problem Postprocedural cardiogenic shock, initial encounter (T81.11XA) 2022 Active confirmed Notes::in [place] etts.; Encounters Encounter Location Date Provider Diagnosis Migrated[facility]Facility 0 0 01/31/2025 Provider Migration [facility] 0 0 02[place]20[place] [facility] [place] [address] [address] 02/20/2025 Hilton Tovar Plan Of Treatment No Information Insurance Providers Payer Name Payer Address Payer Phone Subscriber Number Group Number Insured Name Patient Relationship to Insured Coverage Start Date Coverage End Date [place] [address] [place] [address] [id number] Anthony Cleaning Self - patient is the insured 3 [facility] Supplemental [address] [place] [address] [phone] [id number] Anthony Cleaning Self - patient is the insured 3 Medical (General) History Surgical History Surgery Date(Month/Year) s/p Mini Maze 11/2022 PAST SurgHX Till 0 02/20/2024 S/p PVI ablation 06/15/2023 PAST SurgHX Till 02/20/2024
--- OUTSIDE RECORDS SUMMARY | 2025-07-14 16:29 | XMS_ITS | Encounter Summary ---
Author Organization [facility] Address [address] [place] [address] [place] [address] Phone Care Team Providers Care Cook Pickled Meat Name Role Phone Alton Marin Primary Care Provid er Alexsander Mckeon MD, MPH Unavailable [phone] Vickie Anne DO Unavailable [phone] Asa Morales MD Unavailable [phone] Alona Barlow RN Unavailable [email or web address] Mick Baer DEVELOPMENT MECHANIC Unavailable [phone] Encounter Details Date Type Department Care Team (Late st Contact Info) Description 08/26/2024 Procedure Pass [facility] [address] [place] [address] Social History Tobacco Use Types Packs/Day Years [...] high school, GED, job training, learning the Albanian language, technical skills, or developing parenting skills)? [...] you have trouble paying for medicines? I ayl not to answer 01/20/2024 Paying Utility Bills [...] EST Appointment Department of Radiation Oncology [address] [address] Tessa Castano PA-C [address] [place] [phone] [email or web address] documented as of this encounter Visit Diagnoses Not on filedocumented in this encounter Care Teams Cook Pickled Meat Relationship Specialty Start Date End Date Alton Marin PA [address] [place] [address] PCP - General Physician Fruit Farmworker 07/09/23 Alexsander Mckeon MD, MPH [address] [place] [address] [address] [place] [address] [email or web address] 12/11/23 Vickie Anne DO [address] [place] [address] [email or web address] Medical Oncology 12/11/23 Asa Morales MD [address] [place] [id number] [email or web address] 12/11/23 Alona Barlow, JAMIE [address] [place] [address] [email or web address] Registered Nurse Oncology 05/20/24 Mick Baer, DEVELOPMENT MECHANIC [address] [place] [address] [email or web address] Insurance Actuary 08/21/24 documented as of this encounter Additional Source Comments The information contained in this document represents components of the legal health record. It is not the complete legal health record.[facility]
== END 2025-07-14 14:29 | disposition home or self-care (01) ==
LOC: HO.HSM 13:28
PROVIDERS: PCP Physician Assistant Medical; Visit Provider Registered Nurse
DX: R25.1 Tremor, unspecified (principal); G44.209 Tension-type headache, unspecified, not intractable; G25.3 Myoclonus; M47.812 Spondylosis without myelopathy or radiculopathy, cervical region; G43.909 Migraine, unspecified, not intractable, without status migrainosus; G44.40 Drug-induced headache, not elsewhere classified, not intractable
CPT/HCPCS: 99214

== ENCOUNTER → 2025-07-14 13:28 | Outpatient (BNVA) | payer MEDICARE, SELFPAY | PROVIDERS: PCP Physician Assistant Medical; Visit Provider Registered Nurse | DX: G25.3 Myoclonus (principal); M47.812 Spondylosis without myelopathy or radiculopathy, cervical region; G43.909 Migraine, unspecified, not intractable, without status migrainosus; G44.40 Drug-induced headache, not elsewhere classified, not intractable | CPT/HCPCS: 99212 ==